=== PATIENT | female | born 1935 | race Caucasian/White ===

== ENCOUNTER 2017-12-10 10:50 | Inpatient (IN) | payer OTHER, MEDICARE ==
--- NOTE | 2017-12-10 11:09 | EDPHY ---
H & P Time Seen by Provider: 12/10/17 11:03 HPI/ROS: CHIEF COMPLAINT: Left-sided weakness HISTORY OF PRESENT ILLNESS: 82-year-old female with a history of atrial fibrillation presents with left-sided weakness. Yesterday evening at 2100 she stood up from the couch and noticed that her left leg felt funny. She went to sleep and when she awoke at 0500, she had increased weakness of her left leg. Her left arm also felt weak. She went back to sleep and when she awoke at 0700 , her symptoms again worsened and she needed to use a walker to ambulate. She went to [facility]. She had a CT scan of the head that demonstrated chronic microvascular changes, no acute infarct or hemorrhage. Aspirin given. She was sent to this emergency department for further evaluation and admission. REVIEW OF SYSTEMS: complete 10 point ROS negative except at noted in the HPI - Medical/Surgical History PMH: Atrial fibrillation Hypothyroidism - Social History Smoking Status: Never smoked Alcohol Use: None - Physical Exam Exam: General Appearance: Alert, pleasant Eyes: Pupils equal and round, no conjunctival pallor or injection ENT, Mouth: Mucous membranes moist Neck: Normal inspection Respiratory: Lungs are clear to auscultation Cardiovascular: Regular rate and rhythm Gastrointestinal: Abdomen is soft and nontender Neurological: A&O, cranial nerves 2-12 intact, left lower extremity hip flexion 5-/5, left shoulder strength 5-/5, freelance operator strength equal Skin: Warm and dry Extremities: Nontender, no pedal edema Psychiatric: Mood and affect normal Constitutional: Initial Vital Signs Temperature (C) 36.6 C 12/10/17 10:50 Heart Rate 75 12/10/17 10:50 Respiratory Rate 16 12/10/17 10:50 Blood Pressure 153/67 H 12/10/17 10:50 O2 Sat (%) 95 12/10/17 10:50 O2 Delivery Mode Room Air Allergies/Adverse Reactions: ciprofloxacin Allergy (Verified 12/10/17 12:00) Iodinated Contrast- Oral and IV Dye Allergy (Verified 12/10/17 11:17) Sulfa (Sulfonamide Antibiotics) Allergy (Verified 12/10/17 12:00) Home Medications: Medication Instructions Recorded Aspirin [Aspirin 81mg (*)] 81 mg PO DAILY 12/10/17 Atenolol [Tenormin 25 mg (*)] 12.5 mg PO DAILY 12/10/17 Levothyroxine [Synthroid 100 mcg 100 mcg PO DAILY06 12/10/17 (*)] Magnesium Laxative 500mg 500 mg PO HS 12/10/17 Medical Decision Making - Diagnostics EKG Interpretation: EKG interpreted by me reveals normal sinus rhythm, rate 75, nonspecific T-wave changes. Interpretation: Abnormal EKG. ED Course/Re-evaluation: This patient presents with a CVA. Onset of symptoms was at 2100 yesterday, 14 hr ago. She already received an aspirin. Medical records reviewed from [facility]. Creatinine in this morning 0.7. CT angiogram of the brain and neck ordered. Patient had allergic reaction to prior IV contrast. The allergic reaction consisted of a few welts on the inside of her right thigh. Risks and benefits were discussed with the patient. She agrees to proceed with CTA. Benadryl 25 mg IV and Solu-Medrol 125 mg IV given prior to CT scan. Pt tolerated CTA without allergic rxn. CTA brain/neck: no thrombus, bilateral ICA plaque, read by radiologist. Results discussed with the patient. Neurologic it exam remained unchanged on serial exams. The hospitalist service was consulted for admission. Differential Diagnosis: Altered mental status including but not limited to hypoglycemia, intracranial hemorrhage, infectious process, electrolyte abnormality, head injury, CVA, and intoxicants. - Data Points Laboratory Results: Laboratory Results 12/10/17 11:11 12/10/17 11:11 Medications Given: Aspirin (Aspirin) 81 mg PO DAILY MICHAELA Stop: 06/09/18 08:59 Last Admin: 12/11/17 09:16 Dose: 81 mg Atenolol (Tenormin) 12.5 mg PO DAILY MICHAELA Stop: 06/08/18 13:29 Last Admin: 12/11/17 09:16 Dose: 12.5 mg Levothyroxine Sodium (Synthroid) 100 mcg PO DAILY06 MICHAELA Stop: 06/09/18 05:59 Last Admin: 12/11/17 05:29 Dose: 100 mcg Rosuvastatin Calcium (Crestor) 10 mg PO DAILY MICHAELA Stop: 06/09/18 08:59 Last Admin: 12/11/17 09:16 Dose: 10 mg Warfarin Sodium (Coumadin) 2.5 mg PO DAILY16 MICHAELA Stop: 06/09/18 15:59 Last Admin: 12/11/17 17:47 Dose: 2.5 mg Discontinued Medications Diphenhydramine HCl (Benadryl Injection) 25 mg IVP EDNOW ONE Stop: 12/10/17 11:32 Last Admin: 12/10/17 11:34 Dose: 25 mg Methylprednisolone Sodium Succinate (Solu-Medrol) 125 mg IVP EDNOW ONE Stop: 12/10/17 11:32 Last Admin: 12/10/17 11:32 Dose: 125 mg Departure - Departure Disposition: [facility] Clinical Impression: Acute ischemic stroke Condition: Fair
[2017-12-10] MEDS ORDERED: IOPAMIDOL (ISOVUE 370) 100 ML BTL IV ONE (11:15)
[2017-12-10 11:22] LABS: PLATELET COUNT 258 10^3/uL (150-400)
--- NOTE | 2017-12-10 11:22 | CPEKG ---
Heart Rate: 75 RR Interval: 800 P-R Interval: 172 QRSD Interval: 76 QT Interval: 412 QTC Interval: 461 P Lytle: 48 QRS Lytle: 22 T Wave Lytle: 67 EKG Severity - ABNORMAL ECG - EKG Impression: SINUS RHYTHM EKG Impression: NONSPECIFIC T ABNORMALITIES, ANTERIOR LEADS Electronically Signed By: Beatriz Olsen 10-Dec-2017 15:02:08
[2017-12-10] MEDS ORDERED: methylPREDNISolone SOD SUCC 125 MG/2 ML VIAL ONE (11:27)
[2017-12-10] MEDS ORDERED: methylPREDNISolone SOD SUCC 125 MG/2 ML VIAL IVP ONE (11:31)
[2017-12-10] MEDS ORDERED: ACETAMINOPHEN 325 MG TAB PO PRN (11:40)
[2017-12-10] MEDS ORDERED: ONDANSETRON 4 MG/2 ML VIAL IVP PRN (11:40)
[2017-12-10] MEDS ORDERED: ONDANSETRON DISINTEGRATING 4 MG TAB PO PRN (11:40)
[2017-12-10] MEDS ORDERED: LABETALOL HCL 5 MG/ML 20 ML MDV IVP PRN (12:21)
--- NOTE | 2017-12-10 13:38 | GHP ---
[f rep st] HISTORY AND PHYSICAL DATE OF ADMISSION: 12/10/2017 CHIEF COMPLAINT: Left arm and leg weakness. HISTORY OF PRESENT ILLNESS: A pleasant 82-year-old female with a history of paroxysmal atrial fibrillation and hypothyroidism, who was transferred from [place] with a concern for stroke. She went to bed last night feeling like something was off, but had normal strength and function. She woke up this morning at 5:00 a.m. to go to the bathroom and noted her left leg to be weak. She had to hold onto the railing to get to the restroom. She took a Tylenol PM and went back to bed. Awoke about 7:00 a.m. and noted her left arm to be weak. Denied any slurred speech, blurred vision, or falls. She was seen in [place] and had a CT head that was negative for acute stroke. EKG showed T-wave inversions in the anterior leads. Per review of the outside records, the patient noted that the symptoms likely began last night at 2100 hours when she stood up from the couch and her left leg felt funny. REVIEW OF SYSTEMS: I completed a 10-point review of systems. Negative except as noted in the HPI. PAST MEDICAL HISTORY: 1. Paroxysmal atrial fibrillation, on a baby aspirin. 2. Hypothyroidism. 3. Osteoporosis. 4. Right hip fracture. 5. Kidney stones. 6. Bronchiectasis with Pseudomonas. 7. Hyperlipidemia. PAST SURGICAL HISTORY: 1. Right hip arthroplasty in 2013. 2. Bilateral cataract surgery. 3. Rectocele. 4. Cystocele. SOCIAL HISTORY: Originally from [place], but moved to [place] in 2002. She lives alone in an apartment. She uses a walker and a cane. Smoked half a pack a day for 5-10 years. FAMILY HISTORY: Maternal grandmother had an MO. Mother had dementia. Dad of a "heat stroke." ALLERGIES: Ciprofloxacin, contrast, sulfa. HOME MEDICATIONS: Milk of magnesia, levothyroxine, atenolol, and baby aspirin. PHYSICAL EXAMINATION: VITAL SIGNS: Temperature 36.6, blood pressure 153/67, heart rate 70s, respirations 16, 95% on room air. GENERAL: Well-appearing female sitting in bed smiling. No acute distress. HEENT: PERRLA. EOMI. Oropharynx clear. CV: Regular rate and rhythm. No murmurs, gallops, or rubs. LUNGS: rhonchorous, with cough. ABDOMEN: Soft, nontender, nondistended. Positive bowel sounds. . No Boyd. MUSCULOSKELETAL: Weakness noted on the left upper extremity. SKIN: Warm and dry. NEUROLOGIC: 2 through 12 intact. Abnormal dcioeo-lu-[id number] test. Abnormal rapid hand. Positive dysdiadochokinesis. Positive pronator drift. Normal sensation to touch throughout. LABORATORY DATA: WBC 7, hemoglobin 12, hematocrit 36, platelets 258. Sodium 142, potassium 4.2, chloride 106, carbon dioxide 26, anion gap 10, creatinine 0.7, glucose 60. Troponin 0.012. I personally reviewed EKG personally reviewed by me: Normal sinus rhythm. T-wave inversions in anterior leads. This is similar to the EKG done this morning at [place]. I personally reviewed labs on October 30, 2017. Cholesterol 211, triglycerides 152 , LDL 117. ASSESSMENT AND PLAN: 1. Left arm and leg weakness: concern for CVA. Had a negative CTH at [place]. Undergoing CTA of head and neck right now. Order MRI, echo. Embolic source possible with a fib. Telemetry Per review of labs in October 2017, she has elevated cholesterol and LDL of 117, so start statin. Neurology to evaluate and discuss ASA vs. Plavix and AC. PT, OT, and Speech to evaluate. 2. Hypothyroidism: LT4 3. Paroxysmal atrial fibrillation, currently in a normal sinus rhythm. Resume atenolol. 4. Diet: N.p.o. until speech eval. 5. Deep venous thrombosis prophylaxis: SCDs. 6. Disposition: Warrants observation admission given the concern for acute stroke, warranting frequent neuro checks, telemetry, and a neuro consultation. /[id number]/MODL MTDD
--- NOTE | 2017-12-10 14:27 | ECHO ---
[email or web address] [address] Main: [phone] Fax: Transthoracic Echocardiogram Name: DEDE CHANEY MR#: [id number] Study Date: 12/10/2017 Study Time: 01:20 PM Date of : 1935 Age: 82 year(s) Height: 177.8 cm (70 in.) Weight: 69.85 kg (154 lb.) BSA: 1.87 m2 Gender: Female Examination: Echo with Agitated Saline Indication: Cerebrovascular: prior CVA, Left Sided weakness Image Quality: Contrast: Requested by: Venita Terrazas BP: 150 mmHg/81 mmHg Heart Rate: Rhythm: Indication: Cerebrovascular: prior CVA, Left Sided weakness Procedure Staff Direct Marketing Specialist: Vasyl Hartmann RDCS Reading Physician: Nicolas Guerrero MD Requesting Provider: Conclusions: Normal size left ventricle. Normal global systolic LV function. EF is 79 %. No regional wall motion abnormality. Normal RV function. The left atrium is normal in size. An agitated saline study was performed and was negative for intracardiac shunting. The right atrium is borderline dilated. Trivial to mild tricuspid valve regurgitation. The pulmonary artery pressure is mildly increased. RVSP 39 mmHg. No pericardial effusion. Measurements: Chambers Valvular Assessment AV/MV Valvular Assessment TV/PV Normal Normal Normal Name Value Range Name Value Range Name Value Range Ao Tracee (MM): 2.9 cm (2.2 cm-3.7 AV Vmax: 1.25 m/s (1 m/s-1.7 TR Vmax: 2.93 mm/s ( - ) cm) m/s) TR PGmax: 34 mmHg ( - ) IVSd (2D): 0.8 cm (0.6 cm-1.1 AV maxP mmHg ( - ) syst. PAP: 39 mmHg ( - ) cm) LVOT Vmax: 0.78 m/s (0.7 m/s-1.1 PV Vmax: 0.88 m/s (0.6 m/s-0.9 LVDd (2D): 4.4 cm (3.9 cm-5.3 m/s) m/s) cm) MV E Vmax: 1.06 m/s ( - ) PV PGmax: 3 mmHg ( - ) LVDs (2D): 2.3 cm (2.1 cm-4 MV A Vmax: 0.98 m/s ( - ) cm) MV E/A: 1.08 ( - ) LVPWd (2D): 0.9 cm ( - ) LVEF (2D): 79 (>=54 %) Continued Measurements: Patient: DEDE CHANEY Study Date: 12/10/2017 Page 1 of 2 01:20 PM Chambers Valvular Assessment AV/MV Valvular Assessment TV/PV Name Value Name Value Name Value LADs Lon.2 cm MV E' Septal: 0.06 m/s CVP (est.): 5 mmHg LA Area: 14.0 cm2 MV E/E' Septal: 18.40 LA Volume: 28 ml MV E/E' Lateral: 14.70 LA Volume Index: 15.0 ml/m2 Findings: Left Ventricle: Normal size left ventricle. No LV hypertrophy. Normal global systolic LV function. EF is 79 %. No regional wall motion abnormality. Grade 1 diastolic dysfunction (abnormal relaxation). Right Ventricle: Upper normal size right ventricle. Normal RV function. Left Atrium: The left atrium is normal in size. An agitated saline study was performed and was negative for intracardiac shunting. Right Atrium: The right atrium is borderline dilated. Mitral Valve: Mild mitral valve leaflet calcification is present. Moderate mitral annular calcification. Trivial mitral valve regurgitation. Aortic Valve: Mild aortic cusp calcification is noted. No aortic valve stenosis is present. There is no aortic valve regurgitation. Tricuspid Valve: The tricuspid valve appears normal. Trivial to mild tricuspid valve regurgitation. The pulmonary artery pressure is mildly increased. RVSP 39 mmHg. Pulmonic Valve: The pulmonic valve is normal in appearance and function. Aorta: The aorta is normal. Pericardium: No pericardial effusion. (No Signature Object) Patient: DEDE CHANEY Study Date: 12/10/2017 Page 2 of 2 01:20 PM [id number]
[2017-12-10] MEDS ORDERED: GADOBUTROL 10 ML VIAL IVP ONE (14:39)
[2017-12-10] MEDS: ATENOLOL 25 MG TAB PO SCH (15:33)
[2017-12-11] MEDS: LEVOTHYROXINE 100 MCG TAB PO SCH (05:29)
[2017-12-11] MEDS: ASPIRIN 81 MG CHEWABLE TAB PO SCH (09:16)
[2017-12-11] MEDS: ATENOLOL 25 MG TAB PO SCH (09:16)
[2017-12-11] MEDS: ROSUVASTATIN CALCIUM 10 MG TAB PO SCH (09:16)
--- NOTE | 2017-12-11 09:56 | NEUROPROG ---
Assessment: [id number] - Neurology Consult: - CC: Dr. Farhad Damon consulted neurology for left arm and leg weakness. Results placed in EMR for his review. - HPI: Pt reported on 12/09/17 she noted left leg weakness when she stood up from a chair at 2100. She went to bed then awoke on 12/10/17 with left leg weakness. She went to sleep then re-awoke at 7 am and noted her left arm was weak. She was transferred from [facility] with concern for stroke after head CT showed no acute changes. CTA head/neck showed no acute changes requiring intervention, TTE showed no cardiac thrombus, but brain MRI showed a right sided stroke around the internal capsule concerning for an embolic source (pt has known atrial fibrillation). I initially saw the patient on 12/11/17. Her neurologic exam on 12/11/17 showed left arm/leg weakness and coordination issues. I recommended on discharge she have her daily aspirin changed to oral anticoagulation to prevent further strokes. - PMHx: afib, hypothyroidism, osteoporosis, R hip fx, renal stones, bronchiectasis w/pseduomonas, HLD PSHx: R hip, B/L cataract, retocele, cystocele - Home Medications: levothyroxine, milk of magnesia, atenolol, asa 81 mg qd - SHx: prior tobacco user FHx: NH, dementia, heat stroke - ROS: Pt denied acute fever, total vision loss, active severe chest pain, respiratory failure, total body severe rash, total bowel/bladder incontinence, psychosis, active seizures, or active bleeding - O: VS reviewed General: Alert Eyes: Fundoscopic exam not able to visualize optic disks CV: Heart RRR, no murmur, no carotid bruit Lungs: Clear to auscultation bilaterally, no rhonchi or rales Neuro: - Mental: . Oriented x person/place/date . concentration appears normal . speech fluency/comprehension normal . memory appears normal . fund of knowledge appear intact - Cranial Nerves: . II: PERRL, VFFTC . III/IV/: EOMI, no nystagmus, normal smooth pursuits, no Ptosis . V: facial sensation intact to LT . VII: face symmetric to eye closure and smile . VIII: hearing intact to conversation . IX/X: uvula raises symmetrically . XI: SCM 12/12 B/L strength . XII: tongue protrudes midline w/nl strength - Motor: . Tone: normal tone in all 4 extremity . Strength: right arm/leg normal strength, left arm/leg with 4+/5 weakness - Reflexes: B/L bic/BR/patella 2/4 - Sensory: all 4 extremity intact to light touch - Coord: left arm/leg discoordinated - Gait: deferred - NIH SS 4 (mild left arm and leg weakness, some coordination issues in left arm and leg) - Labs: October 2017- LDL 117 (started on statin at that time) 12/10/17- CBC Hct 36.6L, Chem wnl, Trop neg - Rads: 12/10/17- Head/Neck CTA: unremarkable 12/10/17- TTE: EF 79%, no cardiac thrombus reported 12/10/17- Brain MRI w/o con: R subcortical small stroke by internal capsule, mild CMVD - Assessment: 1. 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 TTE and CTA head/neck unremarkable. Pt on statin for LDL of 117. - 2. Paroxysmal afib 3. HTN - Plan: - Begin oral anticoagulation at hospital discharge, stop aspirin when patient therapeutic on oral anticoagulation (stroke felt to be embolic from paroxysmal afib, failed aspirin) - LDL goal < 70 (October 2017 LDL was 117 so began statin at that time), continue statin - Work with outpatient PCM to ensure blood pressure < 140/90, H1AC < 7.0, and LDL < 70 - PT/OT/Speech assessment to determine any rehab needs - F/U in neurology clinic 1-4 weeks after discharge Objective: Vital Signs Temp Pulse Resp BP Pulse Ox 36.6 C 75 17 142/70 H 92 12/11/17 08:00 12/11/17 09:16 12/11/17 08:00 12/11/17 09:16 12/11/17 08:00 12/10/17 12/11/17 12/12/17 05:59 05:59 05:59 Intake Total 700 480 Output Total 500 Balance 200 480 Allergies/Adverse Reactions: ciprofloxacin Allergy (Verified 12/10/17 12:00) Iodinated Contrast- Oral and IV Dye Allergy (Verified 12/10/17 11:17) Sulfa (Sulfonamide Antibiotics) Allergy (Verified 12/10/17 12:00)
--- NOTE | 2017-12-11 14:44 | ASMTCMCOM ---
CM Note CM Note Notes: Pt in for stroke, dghtr Malina at bedside. OT rec SNF, PT rec inpat rehab, [employer] rec home. Pt and dghtr request SNF referrals to [facility] and [facility], referrals sent in [employer]. Pt was in [facility] four years ago. Penelope with [facility] is reviewing referral and reports she may not know bed availability unitl Thursday. Referral to [facility] pending, voicemail left for admissions at 14:00. Preferred SNF location is [facility] since it is close to where dghtr lives in [place], [place]. [facility] inpat rehab assessing pt, can continue assessment Thursday but unknown if there is any bed availability and if [place] is still too far for dghtr. CM to follow. Date Signed: 12/11/2017 02:44 PM Electronically Signed By:JERRI Good
--- NOTE | 2017-12-11 14:44 | HOSPPROG ---
Hospitalist Progress Note Assessment/Plan: 1. 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 Herring, we will start Coumadin tonight. Cont Aspirin 81 mg daily until INR is therapeutic. No need to start Heparin bridge -will check A1C - F/U in neurology clinic 1-4 weeks after discharge 2. HLD -cont Statin 3. pAfib: cont Atenolol 4. Left sided weakness -cont pt/ot -still symptomatic, almost fell with therapy today. 5. HTN, cont with current meds. Goal is < 140/90. Dispo: change to inpatient. Due to persistent weakness, she may need rehab vs SNF. CM to follow. Subjective: still with left sided weakness. almost fell today while working with PT. Gait is unstable Objective: Vital Signs Temp Pulse Resp BP Pulse Ox 36.3 C 74 16 137/74 H 93 12/11/17 11:12 12/11/17 11:12 12/11/17 11:12 12/11/17 11:12 12/11/17 11:12 12/10/17 12/11/17 12/12/17 05:59 05:59 05:59 Intake Total 700 480 Output Total 500 Balance 200 480 - Physical Exam Constitutional: no apparent distress Eyes: PERRL Ears, Nose, Mouth, Throat: moist mucous membranes, hearing normal Cardiovascular: regular rate and rhythym, No edema Respiratory: no respiratory distress, no rales or rhonchi, clear to auscultation Gastrointestinal: normoactive bowel sounds Skin: warm Musculoskeletal: generalized weakness Neurologic: AAOx3 Psychiatric: interacting appropriately, not anxious, not encephalopathic Lymph, Heme, Immunologic: No petechiae ICD10 Worksheet Patient Problems: Problems Problem Status Onset CVA (cerebral vascular accident) Acute - ICD10 Problem Qualifiers (1) CVA (cerebral vascular accident)
--- NOTE | 2017-12-11 16:54 | PDMN ---
Medical Necessity Medical necessity: C/M review: est. > 2 MN LOS for eval and TX of acute right internal capsule stroke on 12/10/2017 causing left am, / leg weakness, patient almost fell with therapy 12/11/2017, concern for embolic stroke requiring Neurology consult, Rehab eval consult, ongoing oral Coumadin daily - start 2017, continue aspirin daily until INR is therapeutic, cardiac monitoring, pulse oximetry, acute inpt PT/OT/ST, comorbid hyperlipidemia, paroxysmal atrial fibrillation and hypertension, per 12/11/2017 Hospitalist progress note.
--- NOTE | 2017-12-11 17:04 | ASMTCMCOM ---
CM Note CM Note Notes: Penelope at [facility] [phone] reports they can clinically accept pt and will not know if they have a bed until Thursday. Chayo at [facility] [phone] still reviewing, reports pt would not be able to attend follow up appointments in [facility]. Date Signed: 12/11/2017 05:03 PM Electronically Signed By:JERRI Good
[2017-12-11] MEDS: WARFARIN SODIUM 2.5 MG TAB PO SCH (17:47)
[2017-12-11] MEDS: MELATONIN 3 MG TAB PO PRN (20:52)
[2017-12-12 04:57] LABS: INR 1.05 (0.83-1.16); PROTIME(PATIENT) 13.9 SEC (12.0-15.0)
[2017-12-12] MEDS: LEVOTHYROXINE 100 MCG TAB PO SCH (05:29)
[2017-12-12] MEDS: ATENOLOL 25 MG TAB PO SCH (08:31)
[2017-12-12] MEDS: ROSUVASTATIN CALCIUM 10 MG TAB PO SCH (08:33)
[2017-12-12] MEDS: ASPIRIN 81 MG CHEWABLE TAB PO SCH (08:33)
--- NOTE | 2017-12-12 10:06 | HOSPPROG ---
Hospitalist Progress Note Assessment/Plan: 1. 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 Herring, we will start Coumadin tonight. Cont Aspirin 81 mg daily until INR is therapeutic. No need to start Heparin bridge -will check A1C - F/U in neurology clinic 1-4 weeks after discharge 2. HLD -cont Statin 3. pAfib: cont Atenolol * interestingly the armour thyroid she was on for 50 years was changed to synthroid 3 weeks ago because her insurance wouldn't cover armour. May have increased disposition to afib? * will check tsh 4. Left sided weakness -cont pt/ot -still symptomatic, almost fell with therapy today. 5. HTN, cont with current meds. Goal is < 140/90. Dispo: change to inpatient. Due to persistent weakness, she will go to SNF on Thursday. Subjective: no new events Objective: Vital Signs Temp Pulse Resp BP Pulse Ox 36.3 C 73 24 H 134/79 H 92 12/12/17 08:00 12/12/17 08:00 12/12/17 08:00 12/12/17 08:00 12/12/17 08:00 12/11/17 12/12/17 12/13/17 05:59 05:59 05:59 Intake Total 700 1280 Output Total 500 Balance 200 1280 PT 13.9 SEC (12.0-15.0) 12/12/17 04:16 INR 1.05 (0.83-1.16) 12/12/17 04:16 tele pers rev/int - Physical Exam Constitutional: no apparent distress, appears nourished, not in pain Eyes: anicteric sclera, EOMI Ears, Nose, Mouth, Throat: moist mucous membranes, hearing normal Cardiovascular: regular rate and rhythym, no murmur, rub, or gallop Respiratory: no respiratory distress, no rales or rhonchi, clear to auscultation Skin: warm Neurologic: AAOx3 Psychiatric: interacting appropriately, not anxious, not encephalopathic, thought process linear ICD10 Worksheet Patient Problems: Problems Problem Status Onset Acute ischemic stroke Acute CVA (cerebral vascular accident) Acute
--- NOTE | 2017-12-12 13:19 | NEUROPROG ---
Assessment: [id number] - Neurology Consult: - CC: F/U for stroke - Narrative Summary: Pt reported on 12/09/17 she noted left leg weakness when she stood up from a chair at 2100. She went to bed then awoke on 12/10/17 with left leg weakness. She went to sleep then re-awoke at 7 am and noted her left arm was weak. [place] [facility] [place] after head CT showed no acute changes. CTA head/neck showed no acute changes requiring intervention, TTE showed no cardiac thrombus, but brain MRI showed a right sided stroke around the internal capsule concerning for an embolic source (pt has known atrial fibrillation). I initially saw the patient on 12/11/17. Her neurologic exam on 12/11/17 showed left arm/leg weakness and coordination issues. I recommended on discharge she have her daily aspirin changed to oral anticoagulation to prevent further strokes. - HPI: F/U 12/12/17. Pt did not months of some memory disturbance but no acute changes. No other new complaints. Plan is discharge to SNF on Thursday and beginning oral anticoagulation soon. - PMHx: afib, hypothyroidism, osteoporosis, R hip fx, renal stones, bronchiectasis w/pseduomonas, HLD PSHx: R hip, B/L cataract, retocele, cystocele - Home Medications: levothyroxine, milk of magnesia, atenolol, asa 81 mg qd - SHx: prior tobacco user FHx: NC, dementia, heat stroke - ROS: Pt denied acute fever, total vision loss, active severe chest pain, respiratory failure, total body severe rash, total bowel/bladder incontinence, psychosis, active seizures, or active bleeding - Labs: October 2017- LDL 117 (started on statin at that time) 12/10/17- CBC Hct 36.6L, Chem wnl, Trop neg - Rads: 12/10/17- Head/Neck CTA: unremarkable 12/10/17- TTE: EF 79%, no cardiac thrombus reported 12/10/17- Brain MRI w/o con: R subcortical small stroke by internal capsule, mild CMVD - Assessment: 1. 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 TTE and CTA head/neck unremarkable. Pt on statin for LDL of 117. - 2. Paroxysmal afib 3. HTN - 4. Months of Memory Disturbance: Concern for possible dementia, will evaluate in outpatient setting at f/u visit - Plan: - Begin oral anticoagulation at hospital discharge, stop aspirin when patient therapeutic on oral anticoagulation (stroke felt to be embolic from paroxysmal afib, failed aspirin) - LDL goal < 70 (October 2017 LDL was 117 so began statin at that time), continue statin - Work with outpatient PCM to ensure blood pressure < 140/90, H1AC < 7.0, and LDL < 70 - PT/OT/Speech assessment to determine any rehab needs - F/U in neurology clinic 1-4 weeks after discharge, we can evaluate her memory disturbance at that time - No further neurologic w/u needed, neurology will sign off - 35 min spent with patient, majority of time spent counseling on prognosis and treatment options to prevent recurrent stroke. Objective: Vital Signs Temp Pulse Resp BP Pulse Ox 36.3 C 65 19 144/81 H 96 12/12/17 11:42 12/12/17 11:42 12/12/17 11:42 12/12/17 11:42 12/12/17 11:42 12/11/17 12/12/17 12/13/17 05:59 05:59 05:59 Intake Total 700 1280 350 Output Total 500 250 Balance 200 1280 100 PT 13.9 SEC (12.0-15.0) 12/12/17 04:16 INR 1.05 (0.83-1.16) 12/12/17 04:16 Allergies/Adverse Reactions: ciprofloxacin Allergy (Verified 12/10/17 12:00) Iodinated Contrast- Oral and IV Dye Allergy (Verified 12/10/17 11:17) Sulfa (Sulfonamide Antibiotics) Allergy (Verified 12/10/17 12:00)
--- NOTE | 2017-12-12 14:40 | ASMTCMCOM ---
CM Note CM Note Notes: Spoke with Chayo, at [facility] in [place]; willing to accept pt; bed available Thursday, 12/14. Chayo states pt will need to have had a bowel movement 48 hrs prior to admission. Updated pt, pt's daughter, Shannan & RN. Chayo states pt will need to be at [facility] by early afternoon Thursday. Updated pt, Shannan & RN. Shannan agreeable to transporting pt. Chayo also reports pt's followup appointments will need to be scheduled in [place], not [place]. Asked Chayo if pt could attend followup appointments in [place] if her daughter drove her here. Chayo to discuss with Supervisior on Thursday & let CM know. Pt is currently being followed by Neurology & will need to followup, at [facility]rology Clinic in [place], 1-4 weeks following dc from hospital. Updated RN, pt & Shannan; Shannan willing to drive pt to followup appointment in [place]. If [facility] won't let pt go to followup appointment in [place], appointment will need to be scheduled once pt is discharged from [facility]. Pt's daughter planning to visit [facility] in [place] this afternoon to make sure she wants pt to go there at time of dc. CM will follow. Dc plan-SNF Date Signed: 12/12/2017 02:39 PM Electronically Signed By:Tina Brar RN
[2017-12-12] MEDS: WARFARIN SODIUM 2.5 MG TAB PO SCH (15:40)
--- NOTE | 2017-12-12 15:45 | ASMTCMCOM ---
CM Note CM Note Notes: Received phonecall from pt's daughter, Shannan; Shannan would now prefer pt not dc to [facility] in [place]. Shannan states she visited facility today & does not want her mother to go there; prefers [facility] in [place]. LVM with [facility] in [place] to check bed availabilty; awaiting callback. CM will continue to follow. Dc plan-SNF Date Signed: 12/12/2017 03:44 PM Electronically Signed By:Tina Brar RN
[2017-12-12] MEDS: MELATONIN 3 MG TAB PO PRN (20:05)
[2017-12-13] MEDS: LEVOTHYROXINE 100 MCG TAB PO SCH (05:07)
[2017-12-13 06:02] LABS: INR 1.03 (0.83-1.16); PROTIME(PATIENT) 13.7 SEC (12.0-15.0)
[2017-12-13] MEDS: ASPIRIN 81 MG CHEWABLE TAB PO SCH (08:13)
[2017-12-13] MEDS: ATENOLOL 25 MG TAB PO SCH (08:14)
[2017-12-13] MEDS: ROSUVASTATIN CALCIUM 10 MG TAB PO SCH (08:14)
--- NOTE | 2017-12-13 10:35 | HOSPPROG ---
Hospitalist Progress Note Assessment/Plan: 1. 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 Herring, we will start Coumadin tonight. Cont Aspirin 81 mg daily until INR is therapeutic. No need to start Heparin bridge -will check A1C - F/U in neurology clinic 1-4 weeks after discharge 2. HLD -cont Statin 3. pAfib: cont Atenolol * interestingly the armour thyroid she was on for 50 years was changed to synthroid 3 weeks ago because her insurance wouldn't cover armour. May have increased disposition to afib? * TSH is low normal after 3 week of therapy * Will need another TSH in 3 weeks 4. Left sided weakness -cont pt/ot -still symptomatic, almost fell with therapy today. 5. HTN, cont with current meds. Goal is < 140/90. Dispo: change to inpatient. Due to persistent weakness, she will go to SNF on Thursday. Subjective: no new complaints Objective: Vital Signs Temp Pulse Resp BP Pulse Ox 36.4 C 72 18 136/81 H 94 12/13/17 07:28 12/13/17 07:28 12/13/17 07:28 12/13/17 07:28 12/13/17 07:28 12/12/17 12/13/17 12/14/17 05:59 05:59 05:59 Intake Total 1280 1200 550 Output Total 250 Balance 1280 950 550 PT 13.7 SEC (12.0-15.0) 12/13/17 05:37 INR 1.03 (0.83-1.16) 12/13/17 05:37 - Physical Exam Constitutional: no apparent distress, appears nourished, not in pain Eyes: anicteric sclera, EOMI Ears, Nose, Mouth, Throat: moist mucous membranes, hearing normal Cardiovascular: regular rate and rhythym, no murmur, rub, or gallop Respiratory: no respiratory distress, no rales or rhonchi, clear to auscultation Skin: warm Neurologic: AAOx3 Psychiatric: interacting appropriately, not anxious, not encephalopathic, thought process linear ICD10 Worksheet Patient Problems: Problems Problem Status Onset Acute ischemic stroke Acute CVA (cerebral vascular accident) Acute
--- NOTE | 2017-12-13 12:15 | ASMTCMCOM ---
CM Note CM Note Notes: Spoke with Zakia, at [facility] in [place]; still unsure whether bed will available for pt tomorrow. Updated Zakia that pt no longer has a backup plan if [facility] doesn't have a bed for pt; explained pt no longer wants to go to [facility] in [place] & her daughter will need to spend today touring other SNFs because anticipated dc is tomorrow. Zakia contacted Director of [facility] in [place]; informed bed will be available for pt tomorrow. Updated pt, her daughter, MD & RN. Updates faxed; confirmed received CM will continue to follow. Dc plan-[facility] in [place] Date Signed: 12/13/2017 12:15 PM Electronically Signed By:Tina Brar RN
[2017-12-13] MEDS ORDERED: WARFARIN SODIUM 5 MG TAB PO ONE (16:00)
[2017-12-13] MEDS: MELATONIN 3 MG TAB PO PRN (21:01)
[2017-12-14] MEDS: LEVOTHYROXINE 100 MCG TAB PO SCH (05:24)
[2017-12-14 05:28] LABS: INR 1.13 (0.83-1.16); PROTIME(PATIENT) 14.7 SEC (12.0-15.0)
--- NOTE | 2017-12-14 10:19 | CPEKG ---
Heart Rate: 99 RR Interval: 606 P-R Interval: 160 QRSD Interval: 84 QT Interval: 332 QTC Interval: 426 P [place]: 76 QRS [place]: 55 T Wave [place]: 83 EKG Severity - BORDERLINE ECG - EKG Impression: SINUS RHYTHM EKG Impression: BORDERLINE T ABNORMALITIES, ANT-LAT LEADS Electronically Signed By: Adilson Odom 14-Dec-2017 12:40:30
[2017-12-14] MEDS: ASPIRIN 81 MG CHEWABLE TAB PO SCH (10:48)
[2017-12-14] MEDS: ATENOLOL 25 MG TAB PO SCH (10:49)
[2017-12-14] MEDS: ROSUVASTATIN CALCIUM 10 MG TAB PO SCH (10:49)
--- NOTE | 2017-12-14 10:51 | HOSPPROG ---
Hospitalist Progress Note Assessment/Plan: DIAGNOSES: * SINUS TACHYCARDIA, uncertain etiology, new diagnosis this morning * Associated with no elevation of white blood cell count, slight decrease in CO2 on chemistry, and elevated D-dimer * internal capsule stroke, acute right-sided with left-sided weakness * Perhaps some very slight improvement in her hand weakness but otherwise unchanged since admission with mild disabilities * Significant likelihood that this was caused by AFib verses the more common mechanism of stroke * This episode occurred while taking daily low-dose aspirin at home but not on anticoagulant * chronic atrial fibrillation, paroxysmal, currently sinus rhythm during this hospital stay * Chads Vasc 2 score at least 4 so with significant stroke risk * hypertension, chronic, currently well controlled on low-dose medication * hyperlipidemia, mild but LDL at her primary care doctor's office was above our goal of 70 * Started at this time on statin and tolerating it well so far The cause of her new sinus tachycardia is uncertain. She is on Coumadin without full-dose bridging heparin compound which could leave her with some mild hypercoagulability an increase risk of PE. She has no pain in the chest, shortness of breath or DVT symptoms and her legs did not show signs of DVT, nonetheless will do CT scan to rule out PE at this time. She does have a contrast allergy so will have to give her the steroid and Benadryl pre dose again. There is no fever at this time I do not think she has an infection. She does have known bronchiectasis and I expect there to be some abnormality related to that on her chest CT PLANS: -will check a D-dimer and if not normal will pursue CT scan and/or ultrasound look for clots as cause of tachycardia -will check labs to make sure no bleeding or other changes that would explain her tachycardia -continue PT and OT -had a very lengthy discussion today with the patient and daughter at bedside totaling more than 30 min regarding counseling about the various medication choices. The main issue is that she absolutely needs and anticoagulant and they are in agreement with that, though I would recommend a consider Eliquis and after our discussion of the various choices of anticoagulant with the advantages and disadvantages of each they are wanting to change to Eliquis. In addition we went over the statin choices and they are happy with using a statin at this point and they are aware to watch for muscle symptoms that might need assessment. Also they are very concerned about her recent change in thyroid. At this point her TSH is in the normal range but it is only 3 weeks since her change of medications so she still needs to reassess TH in another few weeks and I reviewed that with him. SUBJECTIVE: Today the patient says she feels more tired than usual but no other new symptoms No change overall today from yesterday in her stroke deficits which remain mild and one-sided No chest discomfort, palpitations, shortness of breath, fever symptoms, leg pain or swelling, lightheadedness Eating well and with no aspiration type symptoms OBJECTIVE Vitals reviewed: Has been tachycardic the through the morning which is new today pulse between 95 and 110 mostly in the 100-105 range though around noon it started to slow down and her pulse is now back down into the low 80s upper 70s; otherwise stable BP respirations and temperature [employer], my review: Mild sinus tachycardia this morning has resolved to a sinus rhythm and normal rate Exam: alert oriented No change in voice or speech language functions, the EMR no change in her left- sided motor weakness exam skin warm dry color ok resps not labored lungs clear BSs heart regular abd soft nondistended nontender, bowel sounds present limbs warm, no edema iv site ok 12 lead EKG, 1 ordered by me now, and I compared that tracing with the tracing from her admission EKG: Sinus rhythm on both EKGs with some nonspecific anterior lateral ST abnormality, heart rate 99 on today's EKG is new, nothing overtly ischemic and no conduction abnormalities Laboratory data: I did order a CBC, Chem panel and D-dimer. The D-dimer is mildly elevated her white blood cell count is notably elevated compared to previous up 11. On chemistry there is a slight decrease in CO2 indicating a possible mild metabolic acidosis or respiratory compensation for same. Objective: Vital Signs Temp Pulse Resp BP Pulse Ox 36.7 C 97 20 118/77 92 12/14/17 07:30 12/14/17 10:49 12/14/17 07:30 12/14/17 10:49 12/14/17 07:30 12/13/17 12/14/17 12/15/17 06:59 06:59 06:59 Intake Total 1200 2024 Output Total 250 Balance 950 2024 PT 14.7 SEC (12.0-15.0) 12/14/17 04:52 INR 1.13 (0.83-1.16) 12/14/17 04:52 - Time Spent With Patient Time Spent with Patient: greater than 35 minutes Time Spent with Patient: Greater than 35 minutes spent on this patients care, greater than 50% of time spent counseling, educating, and coordinating care regarding the above mentioned plan. ICD10 Worksheet Patient Problems: Problems Problem Status Onset Acute ischemic stroke Acute CVA (cerebral vascular accident) Acute
[2017-12-14 12:15] LABS: PLATELET COUNT 308 10^3/uL (150-400)
[2017-12-14] MEDS ORDERED: methylPREDNISolone SOD SUCC 125 MG/2 ML VIAL IVP ONE (15:38)
[2017-12-14] MEDS ORDERED: WARFARIN SODIUM 3 MG TAB PO ONE (16:00)
[2017-12-14] MEDS ORDERED: WARFARIN SODIUM 5 MG TAB PO ONE (16:00)
--- NOTE | 2017-12-14 16:43 | ASMTCMCOM ---
CM Note CM Note Notes: Today pt had rapid heart rate which is new, this made pt and dghtr nervous about going to SNF in [place]. Pt dghtr wants pt to be medically treated at [facility] if any new issues come up so today they decided they are agreeable to a [place] location for d/c. Pt appropriate for [facility] inpatient rehab and can d/c when medically stable. CM to follow. Date Signed: 12/14/2017 04:42 PM Electronically Signed By:JERRI Good
[2017-12-14] MEDS ORDERED: IOPAMIDOL (ISOVUE 370) 100 ML BTL IV ONE (18:22)
[2017-12-14] MEDS: MELATONIN 3 MG TAB PO PRN (21:16)
[2017-12-15] MEDS: LEVOTHYROXINE 100 MCG TAB PO SCH (05:56)
[2017-12-15] MEDS: ATENOLOL 25 MG TAB PO SCH (08:13)
[2017-12-15] MEDS: ROSUVASTATIN CALCIUM 10 MG TAB PO SCH (08:14)
[2017-12-15] MEDS: ASPIRIN 81 MG CHEWABLE TAB PO SCH (08:15)
[2017-12-15] MEDS ORDERED: GADOBUTROL 10 ML VIAL IVP ONE (13:10)
--- NOTE | 2017-12-15 19:01 | HOSPPROG ---
Hospitalist Progress Note Assessment/Plan: DIAGNOSES: * SINUS TACHYCARDIA, uncertain etiology, now resolved spontaneously * CT scan with no PE or other findings to explain this, nothing on laboratory data to explain this and it is resolved. The cause is uncertain but I do not have suspicion for a concerning abnormalities this point * internal capsule stroke, acute right-sided with left-sided weakness * Perhaps some very slight improvement in her hand weakness but otherwise unchanged since admission with mild disabilities * Significant likelihood that this was caused by AFib verses the more common mechanism of stroke * This episode occurred while taking daily low-dose aspirin at home but not on anticoagulant * complex cystic structure in the liver noted on CT scan appears as a benign lesion on MRI liver mass protocol * chronic atrial fibrillation, paroxysmal, currently sinus rhythm during this hospital stay * Chads Vasc 2 score at least 4 so with significant stroke risk anticoagulation is clearly indicated * I have had long review of the advantage disadvantages side effects and other issues in terms of choosing different anticoagulants with the patient and her daughter and after carefully reviewing all the options they would like to use Eliquis which I will prescribe at the time of discharge, will hold off for another day due to her recent stroke * hypertension, chronic, currently well controlled on low-dose medication * hyperlipidemia, mild but LDL at her primary care doctor's office was above our goal of 70 * Started at this time on statin and tolerating it well so far PLANS: -at this point she is stable for discharge from the hospital to the inpatient rehabilitation unit, however they are unable to take patient's this late in the day so she will be going there tomorrow morning -continue PT and OT SUBJECTIVE: Feels tired after her MR today. Otherwise she feels fine Actually notes some slight improvement in her stroke deficits in terms of the weakness in limbs today working with therapists. No new neurologic symptoms, no palpitations, no chest symptoms or headache OBJECTIVE Vitals reviewed: Tachycardia has now resolved, with stable blood pressure respirations and temperature is Mushroom Picker, my review: Sinus rhythm Exam: alert oriented No change in voice or speech language functions, the EMR no change in her left- sided motor weakness exam skin warm dry color ok resps not labored lungs clear BSs heart regular abd soft nondistended nontender, bowel sounds present limbs warm, no edema iv site ok CT scan of chest done, I reviewed images: I do not see any pulmonary emboli nor did the radiologist. There are no other acute intrathoracic abnormalities to explain her tachycardia or any other abnormalities that would explain it. However incidentally noted was a new finding of a complex poly cystic lesion in the dome of the liver on the right, with differential diagnosis including malignancy. MRI scan is recommended by Radiology for further assessment. I ordered MRI scan of the abdomen and this was done with a liver mass protocol and I reviewed the images and findings with radiologist: The cystic lesion noted on CT in liver is present but has a benign appearance on this MRI scan and further assessment is not recommended. There is also a simple and benign- appearing cyst in the pancreas. Laboratory data: The follow-up laboratory dated yesterday showed a higher white blood cell count I suspect this is due to her steroid doses for her CT scans. Otherwise no concerning changes Objective: Vital Signs Temp Pulse Resp BP Pulse Ox 36.4 C 82 16 124/85 H 95 12/15/17 15:39 12/15/17 15:39 12/15/17 15:39 12/15/17 15:39 12/15/17 15:39 Laboratory Results 12/14/17 12:00 12/14/17 12:00 12/14/17 12/15/17 12/16/17 06:59 06:59 06:59 Intake Total 2024 500 800 Balance 2024 500 800 PT 14.7 SEC (12.0-15.0) 12/14/17 04:52 INR 1.13 (0.83-1.16) 12/14/17 04:52 - Time Spent With Patient Time Spent with Patient: greater than 35 minutes Time Spent with Patient: Greater than 35 minutes spent on this patients care, greater than 50% of time spent counseling, educating, and coordinating care regarding the above mentioned plan. ICD10 Worksheet Patient Problems: Problems Problem Status Onset Acute ischemic stroke Acute CVA (cerebral vascular accident) Acute
[2017-12-15] MEDS: MELATONIN 3 MG TAB PO PRN (21:40)
[2017-12-16] MEDS: LEVOTHYROXINE 100 MCG TAB PO SCH (05:51)
[2017-12-16] MEDS: ASPIRIN 81 MG CHEWABLE TAB PO SCH (07:46)
[2017-12-16] MEDS: ATENOLOL 25 MG TAB PO SCH (07:46)
[2017-12-16] MEDS: ROSUVASTATIN CALCIUM 10 MG TAB PO SCH (07:47)
--- NOTE | 2017-12-16 08:46 | PDIAF ---
- Diagnosis Diagnosis: Stroke with left-sided weakness, atrial fibrillation Code Status: Do Not Resuscitate - Medication Management Discharge Medications: Medications to Continue on Transfer Aspirin [Aspirin 81mg (*)] 81 mg PO DAILY 12/10/17 [Last Taken 12/10/17] Atenolol [Tenormin 25 mg (*)] 12.5 mg PO DAILY 12/10/17 [Last Taken 12/09/17] Levothyroxine [Synthroid 100 mcg (*)] 100 mcg PO DAILY06 12/10/17 [Last Taken ] Apixaban [Eliquis] 5 mg PO BID #1 tab 12/16/17 [Last Taken Unknown] Melatonin [Melatonin 3 MG (*)] 3 mg PO HS PRN tab 12/16/17 [Last Taken Unknown] Ondansetron Odt [Zofran Odt 4 mg (*)] 4 mg PO Q4HRS PRN tab 12/16/17 [Last Taken Unknown] Rosuvastatin Calcium [Crestor] 10 mg PO DAILY tab 12/16/17 [Last Taken Unknown] Discharge Medications: Refer to the Discharge Home Medication list for PRN reason. - Orders Services needed: Registered Nurse, Certified Hand Paster, Master Materials Planner , Physical Therapy, Occupational Therapy Diet Recommendation: low fat Diet Texture: Regular Texture Diet - Labs/Radiology Other Lab Name, Date and Time: She will need a repeat TSH in approximately 1 month presumably at that time - Follow Up Care Current Providers and Referrals: Patient,NotPresent [Unknown] - As per Instructions
--- NOTE | 2017-12-16 08:52 | PDDCSUM ---
Discharge Summary Discharge Summary: DISCHARGE DIAGNOSES: -acute stroke, ischemic, right internal capsule -left side weakness -chronic atrial fibrillation, paroxysmal, was not on anticoagulant prior to this admission -sinus tachycardia of uncertain etiology, resolved -complex cystic structure of the dome of the right lobe of the liver appears as a benign lesion on imaging studies -chronic hypothyroidism on replacement, recent change in her thyroid replacement medication currently with normal TSH and asymptomatic CONSULTANTS: Dr. James Herring of neurology PROCEDURES: CT scan of brain CT angio head neck MRI brain CT angio of chest with no evidence of PE but question of polycystic lesion and liver MRI liver mass protocol showing benign appearing cystic lesion of the right lobe of the liver as well as a benign-appearing pancreatic cyst HOSPITAL COURSE SUMMARY: This patient who has chronic paroxysmal atrial fibrillation has taken aspirin but no anticoagulant came in with acute left-sided weakness and is found have an ischemic stroke in her right internal capsule. There has been no evidence of bleeding into this lesion. She has had a stable course neurologically we gradual mild improvement in her stroke deficits. She has a mild to moderate disability with these symptoms. She is participating well with therapies. At this time is elected to start her on statin medication as well as anticoagulant due to her recent outpatient lipid studies and her history of atrial fibrillation. She will continue daily aspirin. While here she did develop some sinus tachycardia which lasted for about 12 hr. No etiology was found and there were no other signs of instability. While this was going on we did a CT scan of the chest to look for PE which was negative for PE but had a complex appearing cystic structure in the dome of the liver on the right. This was further studied with a MRI liver mass protocol which showed a benign-appearing polycystic lesion at the dome of the liver, as well as a benign appearing pancreatic cyst. No further investigations or fell indicated At this time she is stable for discharge but felt to need ongoing therapies and will go today to our inpatient rehabilitation unit at the [facility]. PENDING TEST RESULTS: None MEDICATION CHANGES: Addition of Eliquis 5 mg twice daily Addition of FOLLOW-UP PLAN: She is transferred today to the inpatient rehabilitation center are [facility] for further therapies before eventually going home She should have chronic anticoagulation for atrial fibrillation She should be seen by primary care doctor in about a month with repeat TSH as her brand and form of thyroid replacement have been recently changed Greater than 35 minutes bedside and care coordination time today
[2017-12-16 11:57] VITALS: BP 149/75
--- NOTE | 2017-12-16 12:27 | ASMTCMCOM ---
CM Note CM Note Notes: Pt medically stable for d/c to [facility] inpatient rehab. RN Nu called report. Pt dghtr to transport. Orders to be obtained via [employer]. Date Signed: 12/16/2017 12:27 PM Electronically Signed By:JERRI Good
--- NOTE | 2017-12-16 12:30 | ASDISCHSUM ---
Discharge Information Plan Status:Inpatient Rehab Medically Cleared to Leave: Discharge Date:12/16/2017 12:22 PM D/C Disposition:[facility] ADT D/C Disposition:[facility] IP Projected Discharge Date:12/14/2017 11:00 AM Transportation at D/C:Family Discharge Delay Reason: Follow-Up Date:12/14/2017 11:00 AM Discharge Slot: Final Diagnosis: Placement Information Referral Type:*Long Term/SNF Referral ID:[id number] Provider Name: Address 1: Phone Number: Address 2: Fax Number: City: Selection Factors: State: Referral Type:Rehabilitation Hospital Referral ID:[id number] Provider Name:[facility] Address 1:[address] [place] [address] Phone Number: Address 2: Fax Number: [facility]:[place] Selection Factors: State:[place] Patient Contact Information Contact Name:YVETTEDARLENE Relationship:Daughter Address: City: Alternate Phone: State/Zip Code: Email: Financial Information Financial Class:Medicare Primary Plan Desc:MEDICARE INPATIENT Primary Plan Number:[id number] Secondary Plan Desc:AARP/MDR SUPPLEMENT Secondary Plan Number:[id number] Assessment Information [facility] CM Progress Note CM Note CM Note Notes: Pt in for stroke, dghtr Malina at bedside. 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 Pt and dghtr request SNF referrals to [facility] and [facility], [facility]. Pt was in [facility] four years ago. Penelope with [facility] is reviewing referral and reports she may not know bed availability unitl Thursday. Referral to [facility] pending, voicemail left for admissions at 14:00. Preferred SNF location is [place] since it is close to where dghtr lives in [place], [place]. [facility] inpat rehab assessing pt, can continue assessment Thursday but unknown if there is any bed availability and if [place] is still too far for dghtr. to follow. Date Signed: 12/11/2017 02:44 PM Electronically Signed By:JERRI Good [facility] Progress Note CM Note CM Note Notes: Penelope at [facility] [phone] reports they can clinically accept pt and will not know if they have a bed until Thursday. Chayo at [facility] [phone] still reviewing, reports pt would not be able to attend follow up appointments in [place], only [place]. Date Signed: 12/11/2017 05:03 PM Electronically Signed By:JERRI Good [facility] ITA Progress Note CM Note CM Note Notes: Spoke with Chayo, at [facility] in [place]; willing to accept pt; bed available Thursday, 12/14. Chayo states pt will need to have had a bowel movement 48 hrs prior to admission. Updated pt, pt's daughter, Shannan & RN. Chayo states pt will need to be at [facility] by early afternoon Thursday. Updated pt, Shannan & RN. Shannan agreeable to transporting pt. Chayo also reports pt's followup appointments will need to be scheduled in [place], not [place]. Asked Chayo if pt could attend followup appointments in [place] if her daughter drove her here. Chayo to discuss with Super[facility]ior on Thursday & let CM know. Pt is currently being followed by Neurology & will need to followup, at [facility] in [place], 1-4 weeks following dc from hospital. Updated RN, pt & Shannan; Shannan willing to drive pt to followup appointment in [place]. If [facility] won't let pt go to followup appointment in [place], appointment will need to be scheduled once pt is discharged from [facility]. Pt's daughter planning to visit [facility] in [place] this afternoon to make sure she wants pt to go there at time of dc. CM will follow. Dc plan-SNF Date Signed: 12/12/2017 02:39 PM Electronically Signed By:Tina Brar RN [facility] CM Progress Note CM Note CM Note Notes: Received phonecall from pt's daughter, Shannan; Shannan would now prefer pt not dc to [facility] in [place]. Shannan states she visited facility today & does not want her mother to go there; prefers [facility] in [place]. LVM with [facility] in [place] to check bed availabilty; awaiting callback. CM will continue to follow. Dc plan-SNF Date Signed: 12/12/2017 03:44 PM Electronically Signed By:Tina Brar RN [facility] CM Progress Note CM Note CM Note Notes: Spoke with Zakia, at [facility] in [place]; still unsure whether bed will available for pt tomorrow. Updated Zakia that pt no longer has a backup plan if [facility] doesn't have a bed for pt; explained pt no longer wants to go to [facility] in [place] & her daughter will need to spend today touring other SNFs because anticipated dc is tomorrow. Zakia contacted Director of [facility] in [place]; informed bed will be available for pt tomorrow. Updated pt, her daughter, & RN. Updates faxed; confirmed received CM will continue to follow. Dc plan-[facility] in [place] Date Signed: 12/13/2017 12:15 PM Electronically Signed By:Tina Brar RN [facility] CM Progress Note CM Note CM Note Notes: Today pt had rapid heart rate which is new, this made pt and dghtr nervous about going to SNF in [place]. Pt dghtr wants pt to be medically treated at [facility] if any new issues come up so today they decided they are agreeable to a [place] location for d/c. Pt appropriate for [facility] inpatient rehab and can d/c when medically stable. CM to follow. Date Signed: 12/14/2017 04:42 PM Electronically Signed By:JERRI Good [facility] CM Progress Note CM Note CM Note Notes: Pt medically stable for d/c to [facility] inpatient rehab. KALEB Judge called report. Pt dghtr to transport. Orders to be obtained via [employer]. Date Signed: 12/16/2017 12:27 PM Electronically Signed By:JERRI Good Intervention Information Intervention Type:*[facility]-Signed Date of Service:12/11/2017 11:59 AM Patient Type:Observation Staff Member:Dulce Maria Stock Hours: Discipline: Severity: Comment: Intervention Type:*IM-Signed Date of Service:12/16/2017 10:16 AM Patient Type:Inpatient Staff Member:Dulce Maria Stock Hours: Discipline: Severity: Comment:
== END 2017-12-16 12:22 | DRG 65 ==
LOC: EDUNIT# → OBSVTOIN 11:29 → INTOOBSV 11:29 → F3N 13:00
PROVIDERS: ADMIT Family Medicine; ATTEND Family Medicine
DX: I63.9 Cerebral infarction, unspecified (principal); G81.94 Hemiplegia, unspecified affecting left nondominant side; R00.0 Tachycardia, unspecified; I48.0 Paroxysmal atrial fibrillation; E03.9 Hypothyroidism, unspecified; E78.5 Hyperlipidemia, unspecified; M81.0 Age-related osteoporosis without current pathological fracture; I10 Essential (primary) hypertension; Z96.641 Presence of right artificial hip joint; Z87.891 Personal history of nicotine dependence; Z87.442 Personal history of urinary calculi; Z79.82 Long term (current) use of aspirin
CPT/HCPCS: 92523-GN; 96374; 97110-GO; 97110-GP; 97116-GP; 97162-GP; 97166-GO; 97530-GO; 97530-GP; 97535-GO; A9585; G0378; G8978-GP-CK; G8979-GP-CI; G8980-GP-CI; G8987-GO-CJ; G8988-GO-CI; G9168-GO-CI; G9169-GN-CI; G9170-GN-CI; J1200; J2930; Q9967

== ENCOUNTER 2017-12-15 15:14 | Inpatient (IN) | payer OTHER, MEDICARE ==
[2017-12-16] MEDS ORDERED: MELATONIN 3 MG TAB PO PRN (13:45)
[2017-12-16] MEDS ORDERED: ONDANSETRON DISINTEGRATING 4 MG TAB PO PRN (13:45)
[2017-12-16] MEDS ORDERED: MAGNESIUM HYDROXIDE 30 ML UDCUP PO PRN (13:46)
--- NOTE | 2017-12-16 15:28 | GHP ---
[f rep st] HISTORY AND PHYSICAL POST ADMISSION PHYSICIAN EVALUATION AND REHABILITATION TREATMENT PLAN DATE OF ADMISSION: 12/16/2017 DATE OF EVALUATION: 12/16/2017 TIME OF EVALUATION: 1335 REFERRING FACILITY: [facility]. REFERRING PHYSICIAN: Dr. Terrazas IMPAIRMENT GROUP: 1.2 DATE OF ONSET: 12/10/2017 CONSULTING PHYSICIANS: She was seen in consultation by neurologist, Dr. Herring. REHABLITATION DIAGNOSIS: Debility with eft-sided weakness, status post cerebrovascular accident. ETIOLOGIC DIAGNOSIS: Right body involvement (left brain). HISTORY OF PRESENT ILLNESS: This patient developed left upper and lower extremity weakness. Symptoms developed in the evening but she was able to sleep through the night. Symptoms had worsened in the morning. She was seen in the clinic in [place], [place] where a head CT was negative for any acute changes. She was transferred to [facility] where a CT angiogram of the head showed no acute changes. A transthoracic echo showed no cardiac thrombus, and an MRI of the brain showed a right-sided stroke around the internal capsule, concerning for an embolic source. She had an episode of sinus tachycardia and had a positive D-dimer, which prompted a chest CT. Chest CT was negative for pulmonary embolus, but a cystic mass was seen on the liver. She had a followup liver MRI which showed the lesion to be consistent with a benign cyst. Echocardiogram further showed normal systolic left ventricular function and right ventricular function. There was no intracardiac shunt. She had borderline dilated right atrium, trivial to mild tricuspid valve regurgitation and increased pulmonary artery pressure with a right ventricular systolic pressure of 39 mmHg. She participated in therapies and had some improvement in her condition and was appropriate for inpatient rehabilitation. OTHER STUDIES AND LABS DURING HER STAY: Basic metabolic profile was overall within normal limits. Hemoglobin A1c was normal at 5.9. Troponin I was negative at less than 0.012. TSH was normal at 0.932. She was slightly anemic when she first presented to the hospital with a hemoglobin of 12.3 and a hematocrit of 36.6. Subsequently on 12/14/2017, there was an elevated white blood cell count of 11.14 with no left shift and elevations of absolute neutrophils, lymphocytes and monocytes. There was no anemia and platelet count was normal. PRECAUTIONS: She is a fall risk. ACTIVE COMORBIDITIES: She has the tier 3 comorbidity of left hemiparesis. PAST MEDICAL HISTORY: 1. Atrial fibrillation, paroxysmal. 2. Right hip fracture. 3. Cystocele and rectocele. 4. Hypothyroidism. PAST SURGICAL HISTORY: She has had a right hip replacement, and she has had surgery to correct the cystocele and rectocele. PRE-HOSPITAL MEDICATIONS: 1. Aspirin 81 mg p.o. daily. 2. Atenolol 12.5 mg p.o. daily. 3. Levothyroxine 100 mcg p.o. daily. 4. Magnesium laxative 500 mg p.o. q.h.s. ALLERGIES: Listed to ciprofloxacin and iodinated contrast either IV or oral. She also has an allergy to sulfa antibiotics. SOCIAL HISTORY: She is and lives alone in a senior apartment in [place]. There are 5 steps to enter. She has a local adult daughter. She is a nonsmoker and a nondrinker. 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 She moved to [place] from [place] approximately 10 years ago. FAMILY HISTORY: Noncontributory. REVIEW OF SYSTEMS: She denies vision changes. She denies difficulty swallowing but says that sometimes she has some mucus from her lungs, which seems to get stuck in her throat, but she is eventually able to clear this with coughing. She acknowledges some weakness on the left upper and lower extremities, but says these have been improving. She denies weight change, fevers, chills, cough, dyspnea. She has no chest pain. She is not aware of palpitations. She denies dysuria or urinary frequency. There is no nausea, vomiting, constipation or diarrhea. She reports she takes 500 mg of milk of magnesia in a tablet form every night at bedtime and if she does not do this, she can become constipated. There is no dysuria or urinary frequency. There is no joint pain or joint swelling. She has had poor sleep during her hospitalization due to frequent interruptions through the night for nursing assessments and other cares. PHYSICAL EXAMINATION: VITAL SIGNS: This morning in the hospital, blood pressure was 149/75 and has ranged from 106-156 systolic and 101-63 diastolic. Heart rate was 77, respiratory rate was 16, oxygen saturation was 94% on room air. Temperature was 36.6 degrees centigrade. Weight was 69.9 kg for a body mass index of 22.1. GENERAL: This is a well-nourished, well-developed woman, appears her chronologic age, cooperative and in no acute distress. HEENT: Extraocular movements are intact. Pupils are equal, round, and reactive to light. Mucous membranes are moist. Dentition is in good condition. There were no oropharyngeal mucosal lesions seen and there was no posterior oropharyngeal mucus. NECK: Supple. HEART: There is a regular rate and rhythm with no murmurs, rubs, or gallops. LUNGS: Clear to auscultation bilaterally. ABDOMEN: Soft, nontender, nondistended with normoactive bowel sounds and no hepatosplenomegaly. EXTREMITIES: There is no cyanosis or clubbing. There is trace edema pretibial above her socks. Radial and dorsalis pedis pulses are 2+ bilaterally. NEUROLOGIC: She is alert and oriented x3. Cranial nerves 2-12 are grossly intact. On motor testing, she is 5/5 on the right upper and lower extremities. In the left upper extremity hand patient financial advocate is 5/5 , biceps flexion is 4/5, triceps extension is 3/5 and on shoulder abduction is 4 /5. In the lower extremity, hip flexor is 2/5 to 3/5. She has antigravity strength but cannot maintain against any opposing force. Quadriceps are 5/5 and hamstrings are 4/5. Sensation overall is intact to light touch but she has loss of sensation bilaterally in the feet in a stocking distribution. Deep tendon reflexes are 2+ bilaterally at the biceps, 3+ at the left patella and 2+ at the right patella and hypoactive bilaterally at the Achilles tendons. Plantar reflex is downgoing on the left and indeterminate on the right. There is no pronator drift. She has a mild resting tremor of the right hand, and she has mild rigidity, more so in extension than flexion at the right elbow. SKIN: There are no lesions noted. Skin is warm and dry. CURRENT LEVEL OF FUNCTION PER THE PRE-ADMISSION SCREEN: Regarding diet, feeding and swallowing, she was independent and taking a regular diet. Grooming was done with standby assist. Showering required contact guard assist and voice cues for safety due to decreased balance and stability. She used grab bars and a walker. Lower body dressing was done with contact guard assist. Toileting was done with contact guard assist. She was continent of bowel and bladder. She was able to transfer with minimal assist and voice cues for safety. She used a front-wheeled walker. Balance required contact guard to minimal assist. Endurance was fair. She was able to walk 200 feet with a front-wheeled walker, contact guard to minimal assist. She needed cues to lift the left foot and for upright posture and head, she needed cues to increase her base of support. Communication was within functional limits. Regarding cognition, she was noted to have mild impairment in memory. She was considered a fall risk. IMPRESSION: This is an 82-year-old woman who suffered a stroke to the right internal capsule with left upper and lower extremity weakness and ataxia. She was outside of the window for tPA. Stroke on MRI appeared to be likely embolic in nature. She has a history of paroxysmal atrial fibrillation and was noted to be intermittently in atrial fibrillation on monitoring in the hospital. She also had an episode of sinus tachycardia, which prompted an evaluation for pulmonary embolus and this was negative. Cystic mass was seen on the dome of the liver and so there was a followup MRI which showed it to be a benign cystic lesion. She subsequently had effective rate control with atenolol, and blood pressure was generally within target range but occasionally elevated. She was briefly on warfarin during her hospitalization, but then was changed to apixaban, and she had a subcutaneous heparinoid for prevention of thromboembolic disease prior to the initiation of apixaban. Additionally, she is on aspirin with unclear indication for both medications simultaneously. She was also started on rosuvastatin to prevent subsequent stroke. She is appropriate for inpatient rehabilitation with significant deficits to mobility, activities of daily living and cognition. She will benefit from skilled therapies to optimize her function as well as care of nurse and physician for medications, fall risk, symptom management, and comorbidities. Her goal is to complete a rehabilitation stay and then to return home with home care services. For a safe discharge she will need to achieve independence with eating, grooming, and bed mobility, and modified independence for transfers, dressing and ambulation with the least restrictive device. It is expected she will incorporate the use of her left upper extremity automatically during ADLs and functional tasks. It is likely that she will require assistance for household management, shopping, and some meal preparation. She will have therapy with physical therapy, occupational therapy, and speech and language pathology for 60 minutes per day on 5-7 days of the week. Her expected duration of stay is 7-10 days. It is anticipated that upon discharge she will continue to benefit from home health services including nursing, occupational therapy, and physical therapy. Additionally, she will benefit from a stroke support group. PLAN: 1. Cerebrovascular accident with left-sided weakness. PT and OT to optimize functional status to the independent or modified independent level for discharge home alone. 2. Cognitive impairment due to the stroke. Assessment and treatment per speech and language pathology, with the goal of being safe alone at home. 3. Paroxysmal atrial fibrillation. She has been started on apixaban. This was discussed with her pharmacy, the [facility] in [place]. She will have a high co-pay for the first dose, but afterwards this medication will be covered by apixaban. She received a coupon for her first prescription from the discharging hospital and this may cover the expense of the first month. It will be discussed further with the patient and her daughter whether to continue with apixaban or to consider treating with warfarin, which would be much less expensive. Continue atenolol for rate control. Unclear whether she needs simultaneous aspirin and this will be further investigated. 4. Hypothyroidism. Continue levothyroxine. 5. Dyslipidemia. Continue rosuvastatin. 6. Poor sleep in the hospital. She will have much less disturbance in the inpatient rehabilitation unit. Will observe hours of sleep and consider use of a hypnotic if it is indicated. 7. Pulmonary hypertension, mild. She appears to be compensated with no hypoxia during her stay at the acute care hospital. 8. Benign hepatic cyst. 9. Tachycardia of unclear etiology. Pulmonary embolus was ruled out and TSH was normal. She is no longer tachycardic. She will be monitored with further investigations as indicated. Followup. There are no specific plans for followup indicated in discharge paperwork other than to see her primary care provider and to have a repeat TSH in approximately a month. /[id number]/MODL MTDD
[2017-12-16] MEDS: APIXABAN 5 MG TAB PO SCH (20:35)
[2017-12-17] MEDS: LEVOTHYROXINE 100 MCG TAB PO SCH (05:15)
[2017-12-17] MEDS: ROSUVASTATIN CALCIUM 20 MG TAB PO SCH (08:39)
[2017-12-17] MEDS: ATENOLOL 25 MG TAB PO SCH (08:39)
[2017-12-17] MEDS: APIXABAN 5 MG TAB PO SCH ×2 (08:41→20:41)
[2017-12-17] MEDS ORDERED: ROSUVASTATIN CALCIUM 10 MG TAB PO SCH (09:00)
[2017-12-17] MEDS ORDERED: ASPIRIN 81 MG CHEWABLE TAB PO SCH (09:00)
--- NOTE | 2017-12-17 14:37 | SOAPPROG ---
SOAP Progress Note Assessment/Plan: Assessment: * Cerebrovascular accident with left-sided weakness and deficit to mobility. * PT and OT to optimize functional status to the independent or modified independent level for discharge home alone. * Cognitive impairment due to the stroke. Assessment and treatment per speech and language pathology, with the goal of being safe alone at home. * Paroxysmal atrial fibrillation. Continue apixaban. This was discussed with her pharmacy, the [facility] in [place]. She will have a high co-pay for the first dose, but afterwards this medication will be covered by apixaban. * Continue atenolol for rate control. * Neurology note reviewed. No indication for aspirin while on apixaban. Will discontinue aspirin. * Urinary frequency. Check PVR. * Hypothyroidism. Continue levothyroxine. * Dyslipidemia. Continue rosuvastatin. * Poor sleep in the hospital. * Improved. No indication for hypnotic. Continue to monitor. * Pulmonary hypertension, mild. She appears to be compensated with no hypoxia. * Benign hepatic cyst. * Tachycardia of unclear etiology. Pulmonary embolus was ruled out and TSH was normal, with recent change from [place] thyroid to levothyroxine. * She is no longer tachycardic. She will be monitored with further investigations as indicated. Followup. There are no specific plans for followup indicated in discharge paperwork other than to see her primary care provider and to have a repeat TSH in approximately a month. 12/17/17 14:58 Subjective: No complaints this morning. Fell sleep well, awoke at 3:15 a.m. To urinate, retain sleep but then was up early. Took a nice nap this afternoon. She thinks that she is urinating more than she usually does. She notes some difficulty with walking. No fevers or chills, no cough or dyspnea. Objective: Vital Signs Temp Pulse Resp BP Pulse Ox 36.8 C 76 16 121/72 H 94 12/17/17 05:35 12/17/17 08:39 12/17/17 05:35 12/17/17 08:39 12/17/17 05:35 12/16/17 12/17/17 12/18/17 05:59 05:59 05:59 Intake Total 660 560 Output Total 625 300 Balance 35 260 Physical Exam - Physical Exam General Appearance: WD/WN, alert, no apparent distress Respiratory: normal breath sounds, No crackles, No rhonchi, No wheezing Cardiac/Chest: regular rate, rhythm, No edema, No JVD, No diastolic murmur, No systolic murmur Skin: normal color, warm/dry Neuro/Psych: alert, normal mood/affect, oriented x 3, abnormal gait ICD10 Worksheet Patient Problems: Problems Problem Status Onset Acute ischemic stroke Acute CVA (cerebral vascular accident) Acute
[2017-12-18] MEDS: LEVOTHYROXINE 100 MCG TAB PO SCH (05:59)
[2017-12-18] MEDS: ATENOLOL 25 MG TAB PO SCH (08:17)
[2017-12-18] MEDS: ROSUVASTATIN CALCIUM 20 MG TAB PO SCH (08:17)
[2017-12-18] MEDS: APIXABAN 5 MG TAB PO SCH ×2 (08:17→21:15)
--- NOTE | 2017-12-18 09:35 | SOAPPROG ---
SOAP Progress Note Assessment/Plan: Assessment: * CALF PAIN-PER NURSING. ASKED TO SEE PATIENT EARLY THIS MORNING DUE TO PATIENT 'S COMPLAINT OF BILATERAL CALF PAIN. BY HISTORY PATIENT STATES THAT THIS HAS PRECEDED HER RECENT HOSPITALIZATION. SHE REPORTS THAT HER CALFS ARE USUALLY TENDER TO THE TOUCH. SHE DOES NOT RELAYS SYMPTOMS CONSISTENT WITH NEUROGENIC CLAUDICATION. SHE STATES SHE HAS BEEN TOLD IN THE PAST THAT SHE MAY HAVE POOR CIRCULATION IN HER FEET BUT SHE DOES NOT RECALL HAVING LOWER EXTREMITY VASCULAR STUDIES OR ANKLE BRACHIAL INDICES. BY EXAM, THERE IS NO ERYTHEMA, TENDERNESS, SWELLING OR PALPABLE CORDS IN THE CALVES. SHE HAS ADEQUATE CAPILLARY REFILL IN BOTH FEET. SUSPICION FOR DEEP VENOUS THROMBOSIS IS LOW AND THEREFORE OPTED NOT TO OBTAIN VENOUS DOPPLER STUDIES. DR. CRABTREE MAY WANT TO OBTAIN ANKLE-BRACHIAL INDICES NEXT WEEK. * Cerebrovascular accident with left-sided weakness and deficit to mobility. * PT and OT to optimize functional status to the independent or modified independent level for discharge home alone. * Cognitive impairment due to the stroke. Assessment and treatment per speech and language pathology, with the goal of being safe alone at home. * Paroxysmal atrial fibrillation. Continue apixaban. This was discussed with her pharmacy, the [facility] in [place]. She will have a high co-pay for the first dose, but afterwards this medication will be covered by apixaban. I WILL ASK THE ASSISTANT PARALEGAL TO SEE SHE HAS SOME TYPE OF ASSISTANCE SHE CAN GET HER PLUGGED INTO TO HELP REDUCE THE COST OF THE APIXABAN. * Continue atenolol for rate control. * Neurology note reviewed. No indication for aspirin while on apixaban. Will discontinue aspirin. * Urinary frequency. Check PVR. * Hypothyroidism. Continue levothyroxine. * Dyslipidemia. Continue rosuvastatin. * Poor sleep in the hospital. * Improved. No indication for hypnotic. Continue to monitor. * Pulmonary hypertension, mild. She appears to be compensated with no hypoxia. * Benign hepatic cyst. * Tachycardia of unclear etiology. Pulmonary embolus was ruled out and TSH was normal, with recent change from [place] thyroid to levothyroxine. * She is no longer tachycardic. She will be monitored with further investigations as indicated. Followup. There are no specific plans for followup indicated in discharge paperwork other than to see her primary care provider and to have a repeat TSH in approximately a month. 12/17/17 14:58 Subjective: Plan: 12/18/17 09:31 Subjective: MILD BILATERAL CALF TENDERNESS THIS MORNING WHICH SHE NOTES ONLY OCCURS DURING PALPATION. SHE DOES NOT REPORT SYMPTOMS CONSISTENT WITH NEUROGENIC CLAUDICATION. Objective: Vital Signs Temp Pulse Resp BP Pulse Ox 36.4 C 92 16 127/79 H 94 12/18/17 06:15 12/18/17 08:17 12/18/17 06:15 12/18/17 08:17 12/18/17 06:15 12/17/17 12/18/17 12/19/17 05:59 05:59 05:59 Intake Total 660 1170 360 Output Total 625 1500 Balance 35 -330 360 Physical Exam - Physical Exam General Appearance: WD/WN, alert, no apparent distress Respiratory: lungs clear, normal breath sounds Cardiac/Chest: irregularly irregular, No edema Abdomen: non-tender, soft Skin: normal color, warm/dry, cyanosis, other (BOTH FEET ARE SLIGHTLY DUSKY. ADEQUATE CAPILLARY REFILL.) Extremities: non-tender, No calf tenderness, No swelling, No Uzma's sign ICD10 Worksheet Patient Problems: Problems Problem Status Onset Acute ischemic stroke Acute CVA (cerebral vascular accident) Acute
[2017-12-19] MEDS: LEVOTHYROXINE 100 MCG TAB PO SCH (05:26)
[2017-12-19] MEDS: ATENOLOL 25 MG TAB PO SCH (08:09)
[2017-12-19] MEDS: ROSUVASTATIN CALCIUM 20 MG TAB PO SCH (08:11)
[2017-12-19] MEDS: APIXABAN 5 MG TAB PO SCH ×2 (08:11→21:06)
--- NOTE | 2017-12-19 10:51 | SOAPPROG ---
SOAP Progress Note Assessment/Plan: Assessment/Plan Ms. 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 * Cerebrovascular accident with left-sided weakness and deficit to mobility. * PT and OT to optimize functional status to the independent or modified independent level for discharge home alone. * Cognitive impairment due to the stroke. Assessment and treatment per speech and language pathology, with the goal of being safe alone at home. * Paroxysmal atrial fibrillation. Continue apixaban. This was discussed with her pharmacy, the [facility] in [place]. She will have a high co-pay for the first dose, but afterwards this medication will be covered by apixaban. I WILL ASK THE EXPERIMENTAL BOX TESTER TO SEE SHE HAS SOME TYPE OF ASSISTANCE SHE CAN GET HER PLUGGED INTO TO HELP REDUCE THE COST OF THE APIXABAN. * Continue atenolol for rate control. * Neurology note reviewed. No indication for aspirin while on apixaban. Will discontinue aspirin. * Urinary frequency. Check PVR. * Hypothyroidism. Continue levothyroxine. * Dyslipidemia. Continue rosuvastatin. * Poor sleep in the hospital. * Improved. No indication for hypnotic. Continue to monitor. * Pulmonary hypertension, mild. She appears to be compensated with no hypoxia. * Benign hepatic cyst. * Tachycardia of unclear etiology. Pulmonary embolus was ruled out and TSH was normal, with recent change from [place] thyroid to levothyroxine. * She is no longer tachycardic. She will be monitored with further investigations as indicated. Followup. There are no specific plans for followup indicated in discharge paperwork other than to see her primary care provider and to have a repeat TSH in approximately a month. 12/19/17 10:47 Subjective: No new concerns this morning. Feeling well - no new fevers/chills. Tolerating the blood thinner well without evidence of bleeding. Objective: Vital Signs Temp Pulse Resp BP Pulse Ox 37.1 C 94 14 133/72 H 94 12/19/17 05:37 12/19/17 08:00 12/19/17 05:37 12/19/17 08:00 12/19/17 05:37 12/18/17 12/19/17 12/20/17 05:59 05:59 05:59 Intake Total 1170 1180 240 Output Total 1500 200 Balance -330 980 240 Physical Exam - Physical Exam General Appearance: alert, no apparent distress EENT: other (MMM) Respiratory: lungs clear, normal breath sounds Cardiac/Chest: regular rate, rhythm Abdomen: normal bowel sounds, non-tender Skin: normal color Neuro/Psych: alert, normal mood/affect ICD10 Worksheet Patient Problems: Problems Problem Status Onset Acute ischemic stroke Acute CVA (cerebral vascular accident) Acute
[2017-12-20] MEDS: LEVOTHYROXINE 100 MCG TAB PO SCH (05:29)
[2017-12-20] MEDS: ROSUVASTATIN CALCIUM 20 MG TAB PO SCH (08:13)
[2017-12-20] MEDS: APIXABAN 5 MG TAB PO SCH ×2 (08:13→20:16)
[2017-12-20] MEDS: ATENOLOL 25 MG TAB PO SCH (08:13)
--- NOTE | 2017-12-20 10:23 | SOAPPROG ---
SOAP Progress Note Assessment/Plan: Assessment/Plan Ms. 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 * Cerebrovascular accident with left-sided weakness and deficit to mobility. * PT and OT to optimize functional status to the independent or modified independent level for discharge home alone. * Cognitive impairment due to the stroke. Assessment and treatment per speech and language pathology, with the goal of being safe alone at home. * Paroxysmal atrial fibrillation. Continue apixaban. This was discussed with her pharmacy, the [facility] in [place]. She will have a high co-pay for the first dose, but afterwards this apixiban will be covered. I WILL ASK THE SLOPE TENDER TO SEE SHE HAS SOME TYPE OF ASSISTANCE SHE CAN GET HER PLUGGED INTO TO HELP REDUCE THE COST OF THE APIXABAN. * Continue atenolol for rate control. * Neurology note reviewed. No indication for aspirin while on apixaban. Will discontinue aspirin. * Urinary frequency. Check PVR- have been OK * Hypothyroidism. Continue levothyroxine. * Dyslipidemia. Continue rosuvastatin. * Poor sleep in the hospital. * Improved- Continue to monitor. * Pulmonary hypertension, mild. She appears to be compensated with no hypoxia. * Benign hepatic cyst. * Tachycardia of unclear etiology. Pulmonary embolus was ruled out and TSH was normal, with recent change from [place] thyroid to levothyroxine. * She is no longer tachycardic. She will be monitored with further investigations as indicated. Followup. There are no specific plans for followup indicated in discharge paperwork other than to see her primary care provider and to have a repeat TSH in approximately a month. 12/20/17 10:22 Subjective: Feeling pretty good today - slept well. Voiding well without any leaking. No sob/cp Objective: Vital Signs Temp Pulse Resp BP Pulse Ox 36.5 C 75 16 113/64 91 L 12/20/17 06:43 12/20/17 06:43 12/20/17 06:43 12/20/17 06:43 12/20/17 06:43 12/19/17 12/20/17 12/21/17 05:59 05:59 05:59 Intake Total 1180 740 480 Output Total 200 301 Balance 980 439 480 Physical Exam - Physical Exam General Appearance: alert EENT: PERRL/EOMI Neck: non-tender Respiratory: lungs clear Cardiac/Chest: normal peripheral pulses Abdomen: non-tender, soft Skin: normal color Neuro/Psych: alert, normal mood/affect ICD10 Worksheet Patient Problems: Problems Problem Status Onset Acute ischemic stroke Acute CVA (cerebral vascular accident) Acute
[2017-12-21] MEDS: LEVOTHYROXINE 100 MCG TAB PO SCH (04:50)
[2017-12-21] MEDS: ROSUVASTATIN CALCIUM 20 MG TAB PO SCH (09:27)
[2017-12-21] MEDS: APIXABAN 5 MG TAB PO SCH ×2 (09:27→21:24)
[2017-12-21] MEDS: ATENOLOL 25 MG TAB PO SCH (09:27)
--- NOTE | 2017-12-21 14:54 | SOAPPROG ---
SOAP Progress Note Assessment/Plan: Assessment: * Cerebrovascular accident with left-sided weakness and deficit to mobility. * Progressing towards independence or modified independence with ADLs. Walking 50-149 feet. Has bilateral Trendelenburg gait and working with PT on glued activation. * Continue PT and OT to optimize functional status to the independent or modified independent level for discharge home alone. * Cognitive impairment due to the stroke. * Mild deficits to attention, memory and problem solving/reasoning. * Continue speech and language pathology, with the goal of being safe alone at home. * Paroxysmal atrial fibrillation. Continue apixaban. This was discussed with her pharmacy, the [facility] in [place]. She will have a high co-pay for the first dose, but afterwards this medication will be covered by apixaban. * Continue atenolol for rate control. * Neurology note reviewed. No indication for aspirin while on apixaban. Will discontinue aspirin. * Urinary frequency. Check PVR PRN. * Hypothyroidism. Continue levothyroxine. * Dyslipidemia. Continue rosuvastatin. * Poor sleep in the hospital. * Improved. No indication for hypnotic. Continue to monitor. * Pulmonary hypertension, mild. She appears to be compensated with no hypoxia. * Benign hepatic cyst. * Tachycardia of unclear etiology. Pulmonary embolus was ruled out and TSH was normal, with recent change from [place] thyroid to levothyroxine. * She is no longer tachycardic. She will be monitored with further investigations as indicated. Followup. There are no specific plans for followup indicated in discharge paperwork other than to see her primary care provider and to have a repeat TSH in approximately a month. 12/21/17 14:55 Subjective: No complaints. Working with therapy. Sleeping well. Not in pain. Objective: Vital Signs Temp Pulse Resp BP Pulse Ox 36.4 C 72 18 138/74 H 94 12/21/17 05:22 12/21/17 05:22 12/21/17 05:22 12/21/17 05:22 12/21/17 05:22 12/20/17 12/21/17 12/22/17 05:59 05:59 05:59 Intake Total 740 1780 660 Output Total 301 1 Balance 439 1779 660 Physical Exam - Physical Exam General Appearance: WD/WN, alert, no apparent distress Respiratory: No respiratory distress, No accessory muscle use Skin: normal color, warm/dry Neuro/Psych: alert, normal mood/affect, oriented x 3, motor weakness (Working with PT at the rail in the [place] on bilateral glute activation.) ICD10 Worksheet Patient Problems: Problems Problem Status Onset Acute ischemic stroke Acute CVA (cerebral vascular accident) Acute
[2017-12-22] MEDS: LEVOTHYROXINE 100 MCG TAB PO SCH (05:12)
[2017-12-22] MEDS: ROSUVASTATIN CALCIUM 20 MG TAB PO SCH (08:43)
[2017-12-22] MEDS: APIXABAN 5 MG TAB PO SCH ×2 (08:43→20:26)
[2017-12-22] MEDS: ATENOLOL 25 MG TAB PO SCH (08:45)
--- NOTE | 2017-12-22 16:09 | SOAPPROG ---
SOAP Progress Note Assessment/Plan: Assessment: * Cerebrovascular accident with left-sided weakness and deficit to mobility. * Progressing towards independence or modified independence with ADLs. Walking 50-149 feet. Has bilateral Trendelenburg gait and working with PT on glute activation. * Continue PT and OT to optimize functional status to the independent or modified independent level for discharge home alone. * Cognitive impairment due to the stroke. * Mild deficits to attention, memory and problem solving/reasoning. * Continue speech and language pathology, with the goal of being safe alone at home. * Paroxysmal atrial fibrillation. Continue apixaban. This was discussed with her pharmacy, the [facility] in [place]. She will have a high co-pay for the first dose, but afterwards this medication will be covered by apixaban. * Continue atenolol for rate control. * Neurology note reviewed. No indication for aspirin while on apixaban. Will discontinue aspirin. * Urinary frequency. Check PVR PRN. * Hypothyroidism. Continue levothyroxine. * Dyslipidemia. Continue rosuvastatin. * Poor sleep in the hospital. * Improved. No indication for hypnotic. Continue to monitor. * Pulmonary hypertension, mild. She appears to be compensated with no hypoxia. * Benign hepatic cyst. * Tachycardia of unclear etiology. Pulmonary embolus was ruled out and TSH was normal, with recent change from [place] thyroid to levothyroxine. * She is no longer tachycardic. She will be monitored with further investigations as indicated. Followup. There are no specific plans for followup indicated in discharge paperwork other than to see her primary care provider and to have a repeat TSH in approximately a month. 12/22/17 16:08 Subjective: Concerned about low diastolic blood pressure. Denies dizziness while standing. Feels fatigued after a day of therapy. No fevers or chills, no cough or dyspnea. Objective: Vital Signs Temp Pulse Resp BP Pulse Ox 36.4 C 91 16 108/64 91 L 12/22/17 05:55 12/22/17 08:45 12/22/17 05:55 12/22/17 08:45 12/22/17 05:55 12/21/17 12/22/17 12/23/17 05:59 05:59 05:59 Intake Total 1780 1416 600 Output Total 1 Balance 1779 1416 600 Physical Exam - Physical Exam General Appearance: WD/WN, alert, no apparent distress Respiratory: normal breath sounds, No crackles, No rhonchi, No wheezing Cardiac/Chest: regular rate, rhythm, No edema, No diastolic murmur, No systolic murmur Skin: normal color, warm/dry Neuro/Psych: alert, normal mood/affect, oriented x 3 ICD10 Worksheet Patient Problems: Problems Problem Status Onset Acute ischemic stroke Acute CVA (cerebral vascular accident) Acute
[2017-12-23] MEDS: LEVOTHYROXINE 100 MCG TAB PO SCH ×2 (05:23→06:33)
[2017-12-23] MEDS: APIXABAN 5 MG TAB PO SCH ×2 (08:33→21:32)
[2017-12-23] MEDS: ATENOLOL 25 MG TAB PO SCH (08:33)
[2017-12-23] MEDS: ROSUVASTATIN CALCIUM 20 MG TAB PO SCH (08:35)
--- NOTE | 2017-12-23 16:47 | SOAPPROG ---
SOAP Progress Note Assessment/Plan: Assessment: * Cerebrovascular accident with left-sided weakness and deficit to mobility. * Progressing towards independence or modified independence with ADLs. Walking 50-149 feet. Has bilateral Trendelenburg gait and working with PT on gluteus activation. * Continue PT and OT to optimize functional status to the independent or modified independent level for discharge home alone. * Cognitive impairment due to the stroke. * Mild deficits to attention, memory and problem solving/reasoning. * Continue speech and language pathology, with the goal of being safe alone at home. * Paroxysmal atrial fibrillation. Continue apixaban. This was discussed with her pharmacy, the [facility] in [place]. She will have a high co-pay for the first dose, but afterwards this medication will be covered by insurance. * Continue atenolol for rate control. * Neurology note reviewed. No indication for aspirin while on apixaban. Will discontinue aspirin. * Urinary frequency. Check PVR PRN. * Hypothyroidism. Continue levothyroxine. * Dyslipidemia. Continue rosuvastatin. * Poor sleep in the hospital. * Improved. No indication for hypnotic. Continue to monitor. * Pulmonary hypertension, mild. She appears to be compensated with no hypoxia. * Benign hepatic cyst. * Tachycardia of unclear etiology. Pulmonary embolus was ruled out and TSH was normal, with recent change from [place] thyroid to levothyroxine. * She is no longer tachycardic. She will be monitored with further investigations as indicated. Followup. There are no specific plans for followup indicated in discharge paperwork other than to see her primary care provider and to have a repeat TSH in approximately a month. 12/23/17 16:45 Subjective: No complaints, other than fatigue from working with therapies. Slept well. Not in pain. Has some concerns about the ventral ability to S and 45 steps into her home. Objective: Vital Signs Temp Pulse Resp BP Pulse Ox 36.4 C 90 16 115/69 94 12/23/17 05:28 12/23/17 08:33 12/23/17 05:28 12/23/17 08:33 12/23/17 05:28 12/22/17 12/23/17 12/24/17 05:59 05:59 05:59 Intake Total 1416 1610 480 Balance 1416 1610 480 Physical Exam - Physical Exam General Appearance: WD/WN, alert, no apparent distress Respiratory: normal breath sounds, No crackles, No rhonchi, No wheezing Cardiac/Chest: regular rate, rhythm, No edema, No diastolic murmur, No systolic murmur Skin: normal color, warm/dry Neuro/Psych: alert, normal mood/affect, oriented x 3 ICD10 Worksheet Patient Problems: Problems Problem Status Onset Acute ischemic stroke Acute CVA (cerebral vascular accident) Acute
[2017-12-24] MEDS: LEVOTHYROXINE 100 MCG TAB PO SCH (06:58)
[2017-12-24] MEDS: ROSUVASTATIN CALCIUM 20 MG TAB PO SCH (07:59)
[2017-12-24] MEDS: APIXABAN 5 MG TAB PO SCH ×2 (07:59→20:27)
[2017-12-24] MEDS: ATENOLOL 25 MG TAB PO SCH (08:00)
--- NOTE | 2017-12-24 14:00 | SOAPPROG ---
SOAP Progress Note Assessment/Plan: Assessment: * Cerebrovascular accident with left-sided weakness and deficit to mobility. * Initial functional independence measure 87 on 12/18/2017. Progressing towards independence or modified independence with ADLs. Walking 200 feet. Has bilateral Trendelenburg gait and working with PT on gluteus activation. * Continue PT and OT to optimize functional status to the independent or modified independent level for discharge home alone. * Cognitive impairment due to the stroke. * Mild deficits to attention, memory and problem solving/reasoning. * Continue speech and language pathology, with the goal of being safe alone at home. * Paroxysmal atrial fibrillation. Continue apixaban. This was discussed with her pharmacy, the [facility] in [place]. She will have a high co-pay for the first dose, but afterwards this medication will be covered by insurance. * Continue atenolol for rate control. * Neurology note reviewed. No indication for aspirin while on apixaban. Will discontinue aspirin. * Urinary frequency. Check PVR PRN. * Hypothyroidism. Continue levothyroxine. TSH was normal in the hospital. * Fatigue. Likely due to deconditioning. Hypothyroidism does not contribute. Continue efforts per PT and OT. * Dyslipidemia. Continue rosuvastatin. * Poor sleep in the hospital. * Improved. No indication for hypnotic. Uses melatonin occasionally. Continue to monitor. * Pulmonary hypertension, mild, and history of bronchiectasis.. She appears to be compensated with no hypoxia. * Benign hepatic cyst. * Tachycardia of unclear etiology. Pulmonary embolus was ruled out and TSH was normal, with recent change from [place] thyroid to levothyroxine. * She is no longer tachycardic. She will be monitored with further investigations as indicated. Followup. There are no specific plans for followup indicated in discharge paperwork other than to see her primary care provider and to have a repeat TSH in approximately a month. This patient needs a walker. She has a mobility limitation that significantly impairs 1 or more mobility related ADLs in the home, she is able to use the walker safely, and the functional mobility deficit cannot be resolved with a cane. 12/24/17 13:54 Subjective: Reports fatigue after therapies today. Sleeping well. Walking further distances. Says she practiced getting in and out of a vehicle today. Otherwise no complaints. Objective: Vital Signs Temp Pulse Resp BP Pulse Ox 37.1 C 83 18 103/59 L 93 12/24/17 08:00 12/24/17 08:00 12/24/17 08:00 12/24/17 08:00 12/24/17 08:00 12/23/17 12/24/17 12/25/17 05:59 05:59 05:59 Intake Total 1610 1313 720 Output Total 100 Balance 1610 1213 720 Physical Exam - Physical Exam General Appearance: WD/WN, alert, no apparent distress Respiratory: No respiratory distress, No accessory muscle use Skin: normal color, warm/dry Neuro/Psych: alert, normal mood/affect, oriented x 3 ICD10 Worksheet Patient Problems: Problems Problem Status Onset Acute ischemic stroke Acute CVA (cerebral vascular accident) Acute
[2017-12-25] MEDS: LEVOTHYROXINE 100 MCG TAB PO SCH (06:34)
[2017-12-25] MEDS: ROSUVASTATIN CALCIUM 20 MG TAB PO SCH (08:35)
[2017-12-25] MEDS: APIXABAN 5 MG TAB PO SCH ×2 (08:38→20:39)
[2017-12-25] MEDS: ATENOLOL 25 MG TAB PO SCH (08:40)
--- NOTE | 2017-12-25 09:42 | SOAPPROG ---
SOAP Progress Note Assessment/Plan: Assessment: * Cerebrovascular accident with left-sided weakness and deficit to mobility. * Initial functional independence measure 87 on 12/18/2017, improved to 107 as of 12/25/2017. Progressing to independent in her room today. Safer with a front wheeled walker than a 4 wheeled walker. Climbed 9 stairs with 1 rail. Modified independence for ADLs except supervision to standby assist for bath transfer and bathing. * Continue PT and OT to optimize functional status to the independent or modified independent level for discharge home alone. * Cognitive impairment due to the stroke. * Very mild deficits to attention, memory and problem solving/reasoning. 100% accuracy with filling her med box. * Continue speech and language pathology, with the goal of being safe alone at home. * Paroxysmal atrial fibrillation. Continue apixaban. This was discussed with her pharmacy, the [facility] in [place]. She will have a high co-pay for the first dose, but afterwards this medication will be covered by insurance. * Discontinue atenolol as her blood pressure is running low. If she has tachycardia, would favor initiating metoprolol 12.5 mg twice daily for better 24 hr control. * Neurology note reviewed. No indication for aspirin while on apixaban. Will discontinue aspirin. * Hypotension. BMP within normal limits. TSH somewhat suppressed. Stopping atenolol. * Urinary frequency. Check PVR PRN. * Hypothyroidism. Reduce levothyroxine from 100 mcg q.day to 88 mcg q.day. Recheck TSH in 4-6 weeks. * Fatigue. Likely due to deconditioning. Hypothyroidism does not contribute. Continue efforts per PT and OT. * Dyslipidemia. Continue rosuvastatin. * Poor sleep in the hospital. * Improved. No indication for hypnotic. Uses melatonin occasionally. Continue to monitor. * Pulmonary hypertension, mild, and history of bronchiectasis.. She appears to be compensated with no hypoxia. * Benign hepatic cyst. * Tachycardia of unclear etiology. Pulmonary embolus was ruled out and TSH was normal, with recent change from [place] thyroid to levothyroxine. * She is no longer tachycardic. She will be monitored with further investigations as indicated. DISPOSITION: Attended staffing, 15 min. Discussed with case management, dietitian, nursing, PT, OT, DRY HOUSE ATTENDANT. Attended family conference, 30 min, patient and her daughter in attendance. Goal is independent function and ability to safely negotiate 5 stairs to enter the house. Discharge date set for 2017. Followup. There are no specific plans for followup indicated in discharge paperwork other than to see her primary care provider and to have a repeat TSH in approximately a month. Primary care provider is in [place]. This patient needs a walker. She has a mobility limitation that significantly impairs 1 or more mobility related ADLs in the home, she is able to use the walker safely, and the functional mobility deficit cannot be resolved with a cane. 12/25/17 15:16 Subjective: Continues to complain of fatigue. She feels her mobility is improving. She reports that therapy says she might be cleared to ambulate independently in the room today. Sleeping well, no cough or dyspnea. Objective: Vital Signs Temp Pulse Resp BP Pulse Ox 36.7 C 90 15 101/55 L 94 12/25/17 06:42 12/25/17 08:40 12/25/17 06:42 12/25/17 08:40 12/25/17 06:42 12/24/17 12/25/17 12/26/17 05:59 05:59 05:59 Intake Total 1313 920 480 Output Total 100 750 Balance 1213 170 480 Physical Exam - Physical Exam General Appearance: WD/WN, alert, no apparent distress Respiratory: normal breath sounds, No crackles, No rhonchi, No wheezing Cardiac/Chest: regular rate, rhythm, No edema, No diastolic murmur, No systolic murmur Skin: normal color, warm/dry Neuro/Psych: alert, normal mood/affect, oriented x 3 ICD10 Worksheet Patient Problems: Problems Problem Status Onset Acute ischemic stroke Acute CVA (cerebral vascular accident) Acute
[2017-12-25] MEDS ORDERED: LEVOTHYROXINE 100 MCG TAB PO SCH (15:15)
[2017-12-26] MEDS ORDERED: LEVOTHYROXINE 88 MCG TAB PO SCH (07:00)
[2017-12-26] MEDS: ROSUVASTATIN CALCIUM 20 MG TAB PO SCH (08:36)
[2017-12-26] MEDS: APIXABAN 5 MG TAB PO SCH ×2 (08:36→21:21)
--- NOTE | 2017-12-26 13:28 | SOAPPROG ---
SOAP Progress Note Assessment/Plan: Assessment: * Cerebrovascular accident with left-sided weakness and deficit to mobility. * Initial functional independence measure 87 on 12/18/2017, improved to 107 as of 12/25/2017. Progressing to independent in her room today. Safer with a front wheeled walker than a 4 wheeled walker. Climbed 9 stairs with 1 rail. Modified independence for ADLs except supervision to standby assist for bath transfer and bathing. * Continue PT and OT to optimize functional status to the independent or modified independent level for discharge home alone. * Cognitive impairment due to the stroke. * Very mild deficits to attention, memory and problem solving/reasoning. 100% accuracy with filling her med box. * Continue speech and language pathology, with the goal of being safe alone at home. * Paroxysmal atrial fibrillation. Continue apixaban. This was discussed with her pharmacy, the [facility] in [place]. She will have a high co-pay for the first dose, but afterwards this medication will be covered by insurance. * Discontinue atenolol as her blood pressure is running low. If she has tachycardia, would favor initiating metoprolol 12.5 mg twice daily for better 24 hr control. * Neurology note reviewed. No indication for aspirin while on apixaban. Will discontinue aspirin. * WILL RESTART ATENOLOL. CONSIDERED METOPROLOL ABOVE BUT SHE HAD BEEN QUITE STABLE ON ATENOLOL PRIOR. HER BLOOD PRESSURE IS BETTER. I AM ALSO GOING TO PUT HER BACK ON ARMOUR THYROID BELOW WHICH SHOULD HELP HER TACHYCARDIA * Hypotension. BMP within normal limits. BETTER BLOOD PRESSURE TODAY * Urinary frequency. Check PVR PRN. * Hypothyroidism * PATIENT HAD BEEN ON ARMOUR THYROID FOR 30 YEARS. SHE REALLY WANTS TO GO BACK ON THIS AND IS WILLING TO PAY [id number] ON DISCHARGE. LAST TSH WAS SUPPRESSED. WILL SWITCH BACK TO ARMOR. I THINK THIS WILL HELP HER TACHYCARDIA AND HOPEFULLY REDUCE INCIDENCE OF PAROXYSMAL ATRIAL FIBRILLATION. * Fatigue. Likely due to deconditioning. Hypothyroidism does not contribute. Continue efforts per PT and OT. * Dyslipidemia. Continue rosuvastatin. * Poor sleep in the hospital. * Improved. No indication for hypnotic. Uses melatonin occasionally. Continue to monitor. * Pulmonary hypertension, mild, and history of bronchiectasis.. She appears to be compensated with no hypoxia. * Benign hepatic cyst. * Tachycardia of unclear etiology. Pulmonary embolus was ruled out and TSH was normal, with recent change from [place] thyroid to levothyroxine. * She is no longer tachycardic. She will be monitored with further investigations as indicated. Plan: 12/26/17 13:25 Subjective: Had another episode of tachycardia with therapy. I examined her several minutes after she rested and her heart rate was fast but regular Objective: Vital Signs Temp Pulse Resp BP Pulse Ox 36.4 C 96 16 126/76 H 93 12/26/17 07:22 12/26/17 10:54 12/26/17 07:22 12/26/17 07:22 12/26/17 07:22 Laboratory Results 12/25/17 13:05 12/25/17 12/26/17 12/27/17 05:59 05:59 05:59 Intake Total 920 1483 660 Output Total 750 Balance 170 1483 660 Physical Exam - Physical Exam General Appearance: WD/WN, alert, no apparent distress Neck: supple Respiratory: lungs clear, normal breath sounds Cardiac/Chest: regular rate, rhythm, tachycardia Abdomen: soft Neuro/Psych: alert, normal mood/affect, oriented x 3 ICD10 Worksheet Patient Problems: Problems Problem Status Onset Acute ischemic stroke Acute CVA (cerebral vascular accident) Acute
[2017-12-26] MEDS: ATENOLOL 25 MG TAB PO SCH (14:58)
[2017-12-27] MEDS: THYROID 60 MG TAB PO SCH (06:37)
[2017-12-27] MEDS: ROSUVASTATIN CALCIUM 20 MG TAB PO SCH (08:19)
[2017-12-27] MEDS: ATENOLOL 25 MG TAB PO SCH (08:20)
[2017-12-27] MEDS: APIXABAN 5 MG TAB PO SCH ×2 (08:23→20:18)
--- NOTE | 2017-12-27 19:56 | SOAPPROG ---
SOAP Progress Note Assessment/Plan: Assessment: * Cerebrovascular accident with left-sided weakness and deficit to mobility. * Initial functional independence measure 87 on 12/18/2017, improved to 107 as of 12/25/2017. Progressing to independent in her room today. Safer with a front wheeled walker than a 4 wheeled walker. Climbed 9 stairs with 1 rail. Modified independence for ADLs except supervision to standby assist for bath transfer and bathing. * Continue PT and OT to optimize functional status to the independent or modified independent level for discharge home alone. * Cognitive impairment due to the stroke. * Very mild deficits to attention, memory and problem solving/reasoning. 100% accuracy with filling her med box. * Continue speech and language pathology, with the goal of being safe alone at home. * Paroxysmal atrial fibrillation. Continue apixaban. This was discussed with her pharmacy, the [facility] in [place]. She will have a high co-pay for the first dose, but afterwards this medication will be covered by insurance. * Neurology note reviewed. No indication for aspirin while on apixaban. Will discontinue aspirin. * WILL RESTART ATENOLOL. CONSIDERED METOPROLOL ABOVE BUT SHE HAD BEEN QUITE STABLE ON ATENOLOL PRIOR. HER BLOOD PRESSURE IS BETTER. I AM ALSO GOING TO PUT HER BACK ON ARMOUR THYROID BELOW WHICH SHOULD HELP HER TACHYCARDIA * Hypotension. BMP within normal limits. BETTER BLOOD PRESSURE TODAY * Urinary frequency. Check PVR PRN. * Hypothyroidism * PATIENT HAD BEEN ON ARMOUR THYROID FOR 30 YEARS. SHE REALLY WANTS TO GO BACK ON THIS AND IS WILLING TO PAY [id number] ON DISCHARGE. LAST TSH WAS SUPPRESSED. WILL SWITCH BACK TO ARMOR. I THINK THIS WILL HELP HER TACHYCARDIA AND HOPEFULLY REDUCE INCIDENCE OF PAROXYSMAL ATRIAL FIBRILLATION. * Fatigue. Likely due to deconditioning. Hypothyroidism does not contribute. Continue efforts per PT and OT. * Dyslipidemia. Continue rosuvastatin. * Poor sleep in the hospital. * Improved. No indication for hypnotic. Uses melatonin occasionally. Continue to monitor. * Pulmonary hypertension, mild, and history of bronchiectasis.. She appears to be compensated with no hypoxia. * Benign hepatic cyst. * Tachycardia of unclear etiology. Pulmonary embolus was ruled out and TSH was normal, with recent change from [place] thyroid to levothyroxine. * She is no longer tachycardic. She will be monitored with further investigations as indicated. Plan: 12/26/17 13:25 12/27/17 19:55 Subjective: Feels better today. No tachycardia Objective: Vital Signs Temp Pulse Resp BP Pulse Ox 36.3 C 84 16 121/73 H 94 12/27/17 18:23 12/27/17 18:23 12/27/17 18:23 12/27/17 18:23 12/27/17 18:23 Laboratory Results 12/25/17 13:05 12/26/17 12/27/17 12/28/17 05:59 05:59 05:59 Intake Total 1483 1420 800 Balance 1483 1420 800 Physical Exam - Physical Exam General Appearance: WD/WN, alert, no apparent distress Respiratory: lungs clear, normal breath sounds Cardiac/Chest: regular rate, rhythm, No edema Neuro/Psych: alert, normal mood/affect, oriented x 3 ICD10 Worksheet Patient Problems: Problems Problem Status Onset Acute ischemic stroke Acute CVA (cerebral vascular accident) Acute
[2017-12-28] MEDS: THYROID 60 MG TAB PO SCH (07:15)
[2017-12-28] MEDS: APIXABAN 5 MG TAB PO SCH ×2 (08:12→21:04)
[2017-12-28] MEDS: ROSUVASTATIN CALCIUM 20 MG TAB PO SCH (08:13)
[2017-12-28] MEDS: ATENOLOL 25 MG TAB PO SCH (08:13)
--- NOTE | 2017-12-28 12:51 | SOAPPROG ---
SOAP Progress Note Assessment/Plan: Assessment: * Cerebrovascular accident with left-sided weakness and deficit to mobility. * Initial functional independence measure 87 on 12/18/2017, improved to 107 as of 12/25/2017. Progressed to independent in her room 12/25/2017. Safer with a front wheeled walker than a 4 wheeled walker. Climbed 9 stairs with 1 rail. Modified independence for ADLs except supervision to standby assist for bath transfer and bathing. * Continue PT and OT to optimize functional status to the independent or modified independent level for discharge home alone. * Cognitive impairment due to the stroke. * Very mild deficits to attention, memory and problem solving/reasoning. 100% accuracy with filling her med box. * Continue speech and language pathology, with the goal of being safe alone at home. * Paroxysmal atrial fibrillation. Continue apixaban. This was discussed with her pharmacy, the [facility] in [place]. She will have a high co-pay for the first dose, but afterwards this medication will be covered by insurance. * Continue atenolol. * Neurology note reviewed. No indication for aspirin while on apixaban. Will discontinue aspirin. * Hypotension. BMP within normal limits. Asymptomatic. * Urinary frequency. Check PVR PRN. * Hypothyroidism. Resumed armor Thyroid 60 mg q.day on 12/27/2017. Recheck TSH in 4-6 weeks. * Fatigue. Likely due to deconditioning. Hypothyroidism does not contribute. Continue efforts per PT and OT. * Dyslipidemia. Continue rosuvastatin. * Poor sleep in the hospital. * Improved. No indication for hypnotic. Uses melatonin occasionally. Continue to monitor. * Pulmonary hypertension, mild, and history of bronchiectasis.. She appears to be compensated with no hypoxia. * Benign hepatic cyst. * Tachycardia of unclear etiology. Pulmonary embolus was ruled out and TSH was normal, with recent change from [place] thyroid to levothyroxine. * She is no longer tachycardic. She will be monitored with further investigations as indicated. DISPOSITION: Goal is independent function and ability to safely negotiate 5 stairs to enter the house. Discharge date set for 12/30/2017. Followup. There are no specific plans for followup indicated in discharge paperwork other than to see her primary care provider and to have a repeat TSH in approximately a month. Primary care provider is in [place]. This patient needs a walker. She has a mobility limitation that significantly impairs 1 or more mobility related ADLs in the home, she is able to use the walker safely, and the functional mobility deficit cannot be resolved with a cane. 12/28/17 12:51 Subjective: Has some fatigue today. Reports that she was more active with physical therapy yesterday. Beginning to have a cough which she typically gets in the afternoon related to history of bronchiectasis. She says she has to lay down cough until she can clear for phlegm. No dyspnea, no fevers or chills. Objective: Vital Signs Temp Pulse Resp BP Pulse Ox 36.3 C 86 16 112/70 94 12/28/17 08:00 12/28/17 08:00 12/28/17 08:00 12/28/17 08:00 12/28/17 08:00 Laboratory Results 12/25/17 13:05 12/27/17 12/28/17 12/29/17 05:59 05:59 05:59 Intake Total 1420 1500 200 Balance 1420 1500 200 Physical Exam - Physical Exam General Appearance: WD/WN, alert, no apparent distress Respiratory: normal breath sounds, No crackles, No rhonchi, No wheezing Cardiac/Chest: regular rate, rhythm, No edema, No diastolic murmur, No systolic murmur Skin: normal color, warm/dry Neuro/Psych: alert, normal mood/affect, oriented x 3, other (Ambulating in the [place]lvarez with Physical therapy using front wheeled walker. Slightly flexed posture , step through pattern, narrow base of support.) ICD10 Worksheet Patient Problems: Problems Problem Status Onset Acute ischemic stroke Acute CVA (cerebral vascular accident) Acute
[2017-12-29] MEDS: THYROID 60 MG TAB PO SCH (07:10)
[2017-12-29] MEDS: APIXABAN 5 MG TAB PO SCH ×2 (08:42→20:30)
[2017-12-29] MEDS: ATENOLOL 25 MG TAB PO SCH (08:42)
[2017-12-29] MEDS: ROSUVASTATIN CALCIUM 20 MG TAB PO SCH (08:43)
--- NOTE | 2017-12-29 12:13 | SOAPPROG ---
SOAP Progress Note Assessment/Plan: Assessment: * Cerebrovascular accident with left-sided weakness and deficit to mobility. * Initial functional independence measure 87 on 12/18/2017, improved to 107 as of 12/25/2017. Progressed to independent in her room 12/25/2017. Safer with a front wheeled walker than a 4 wheeled walker. Climbed 9 stairs with 1 rail. Modified independence for ADLs except supervision to standby assist for bath transfer and bathing. * Continue PT and OT to optimize functional status to the independent or modified independent level for discharge home alone. * Cognitive impairment due to the stroke. * Very mild deficits to attention, memory and problem solving/reasoning. 100% accuracy with filling her med box. * Continue speech and language pathology, with the goal of being safe alone at home. * Paroxysmal atrial fibrillation. Continue apixaban. This was discussed with her pharmacy, the [facility] in [place]. She will have a high co-pay for the first dose, but afterwards this medication will be covered by insurance. * Continue atenolol. * Neurology note reviewed. No indication for aspirin while on apixaban. Will discontinue aspirin. * Hypotension. BMP within normal limits. Asymptomatic. * Urinary frequency. Check PVR PRN. * Hypothyroidism. Resumed armor Thyroid 60 mg q.day on 12/27/2017. Recheck TSH in 4-6 weeks. * Fatigue. Likely due to deconditioning. Hypothyroidism does not contribute. Continue efforts per PT and OT. * Dyslipidemia. Continue rosuvastatin. * Poor sleep in the hospital. * Improved. No indication for hypnotic. Uses melatonin occasionally. Continue to monitor. * Pulmonary hypertension, mild, and history of bronchiectasis.. She appears to be compensated with no hypoxia. * Benign hepatic cyst. * Tachycardia of unclear etiology. Pulmonary embolus was ruled out and TSH was normal, with recent change from [place] thyroid to levothyroxine. * She is no longer tachycardic. She will be monitored with further investigations as indicated. DISPOSITION: Goal is independent function and ability to safely negotiate 5 stairs to enter the house. Discharge date set for 12/30/2017. Followup. There are no specific plans for followup indicated in discharge paperwork other than to see her primary care provider and to have a repeat TSH in approximately a month. Primary care provider is in [place]. This patient needs a walker. She has a mobility limitation that significantly impairs 1 or more mobility related ADLs in the home, she is able to use the walker safely, and the functional mobility deficit cannot be resolved with a cane. 12/29/17 12:12 Subjective: Difficulty getting back to sleep after getting up to urinate during the night, and feels fatigued today. Otherwise no complaints, and ready to discharge home tomorrow. Objective: Vital Signs Temp Pulse Resp BP Pulse Ox 36.9 C 83 17 107/61 94 12/29/17 07:18 12/29/17 08:42 12/29/17 07:18 12/29/17 08:42 12/29/17 07:18 Laboratory Results 12/25/17 13:05 12/28/17 12/29/17 12/30/17 05:59 05:59 05:59 Intake Total 1500 1550 360 Balance 1500 1550 360 Physical Exam - Physical Exam General Appearance: WD/WN, alert, no apparent distress Respiratory: normal breath sounds, No crackles, No rhonchi, No wheezing Cardiac/Chest: regular rate, rhythm, No diastolic murmur, No systolic murmur Skin: normal color, warm/dry Neuro/Psych: alert, normal mood/affect, oriented x 3, other (Ambulates with front wheeled walker, independently, step through pattern, normal base of support.) ICD10 Worksheet Patient Problems: Problems Problem Status Onset Acute ischemic stroke Acute CVA (cerebral vascular accident) Acute
--- NOTE | 2017-12-29 12:26 | PDOREHIP ---
Admission [facility] - Admission - 3 Day Assessment Period Admission Date/Day 1: 12/16/17 Day 2: 12/17/17 Day 3: 12/18/17 Discharge [facility] - Discharge - 3 Day Assessment Period 2 Days Prior to Anticipated Discharge Date: 12/28/17 1 Day Prior to Anticipated Discharge Date: 12/29/17 Anticipated Discharge Date: 12/30/17 - Discharge Skin Conditions Unhealed Pressure Ulcer (1 or more/Stage 1 or >)-Discharge: 0. No
--- NOTE | 2017-12-29 17:54 | GDS ---
[f rep st] DISCHARGE SUMMARY ADMITTING DIAGNOSIS: Cerebrovascular accident of the right internal capsule, with left-sided weakness. DISCHARGE DIAGNOSIS: Cerebrovascular accident of the right internal capsule, with left-sided weakness. OTHER DISCHARGE DIAGNOSES: 1. Cognitive impairment due to stroke. 2. Paroxysmal atrial fibrillation. 3. Hypothyroidism. 4. Fatigue. 5. History of bronchiectasis. COMPLICATIONS: There were none. PROCEDURES: There were none. CONSULTATIONS: There were none. HISTORY/HOSPITAL COURSE: This patient was admitted from [facility] where she had presented on 12/10/2017 with left upper and lower extremity weakness. She was initially seen in the clinic in [place], [place] and was subsequently transferred to [facility]. There, an MRI of the brain showed a right-sided stroke around the internal capsule, consistent with an embolic source. In the hospital, there was an episode of sinus tachycardia and a positive D-dimer, which prompted a chest CT. There was no pulmonary embolus, but a cystic mass was seen on the liver. There was a followup MRI scan , which showed the lesion to be consistent with a benign hepatic cyst. Echocardiogram also was done and showed normal systolic left ventricular function and right ventricular function, no intracardiac shunt, borderline dilated right atrium, trivial to mild tricuspid valve regurgitation, and increased pulmonary artery pressure with a right ventricular systolic pressure of 39 mmHg. She was medically stabilized and ready for rehabilitation. She had considerable debility when first admitted on 12/16/2017. Initial functional independence measure was 87 on 12/18/2017, which is consistent with assisted living level of function. She was progressing well, however, and able to walk 200 feet. There was a bilateral Trendelenburg gait, and Physical Therapy was focusing on activation of the gluteus muscles. She continued to improve, and with a functional independence measure of 107 on 12/25/2017, which is consistent with independent level of function. She advanced to independent in her room on 12/25/2017. She was found to be safe for ambulating with a front-wheeled walker, then with a 4-wheeled walker. She was able to climb 9 stairs with 1 rail. Her discharge goal was to be able to climb and descend the 5 steps into her home at [place], as well as achieve functional independence. She achieved modified independence for activities of daily living, except she required supervision to standby assist for bath transfer and for bathing. Regarding cognitive impairment due to the stroke, this improved. She was noted to have very mild deficits to attention, memory, problem solving, and reasoning. She was able to do a medication management exercise with 100% accuracy. For paroxysmal atrial fibrillation, she was begun on apixaban. This was discussed with her pharmacy in [place]. There will be a high co-pay for the first dose, but subsequently, she will be paying only a minimal co-pay. Social Work was able to obtain a voucher to cover the cost of the first month of the medication. She had hypothyroidism. She had a recent change from [place] Thyroid to levothyroxine, which preceded her stroke, and she was concerned that it had contributed to her stroke. [place] Thyroid at 60 mg per day was resumed on 12/27. She had a TSH while she was still taking levothyroxine and was suppressed at 0.094, so her dose of 100 mcg of levothyroxine was too high. It was reduced to 88 mcg prior to the change to [place] Thyroid. She had considerable fatigue. Certainly, some of it was due to deconditioning. There may have been a component of hyperthyroidism contributing. She was encouraged to continue endurance activities with longer walks with physical therapy. She had intermittent poor sleep. This may have contributed to her fatigue as well. She used melatonin occasionally. It was anticipated that she would have better sleep when she returned home. Bronchiectasis and mild pulmonary hypertension. She typically would have coughing episodes in the afternoon, in which she would be able to clear mucus. Unclear whether this contributed to her fatigue. She was stable otherwise from a cardiopulmonary perspective. DISCHARGE PLAN: Condition upon discharge is good. Activity is ad louie. Diet is regular. She will continue home OT, PT, and [facility], and will also have a registered nurse visit regarding medication management. DISCHARGE MEDICATIONS: 1. Apixaban 5 mg p.o. b.i.d. 2. Atenolol 12.5 mg p.o. daily. 3. Rosuvastatin 10 mg p.o. daily. 4. [place] Thyroid 60 mg p.o. daily. ISSUES TO BE ADDRESSED AT FOLLOWUP: 1. Functional status. She will continue therapies at home and can follow up with her primary care provider. 2. Hypothyroidism. She should have a repeat TSH in 4-6 weeks. 3. Paroxysmal atrial fibrillation. Continue apixaban, as well as atenolol. She had some episodes of low blood pressure that were not symptomatic. She should be monitored for symptoms of hypotension. 4. Fatigue. It is hoped that she will improve with better sleep at home. She can follow up with her primary care provider. Greater than 30 minutes was spent on this discharge, including medication reconciliation, coordination of care, and counseling patient. Copy requested to: Dr. Cole Cordero, [place], [place] /[id number]/MODL MTDD
[2017-12-30] MEDS: THYROID 60 MG TAB PO SCH (06:01)
[2017-12-30 06:43] VITALS: BP 112/61
[2017-12-30] MEDS: APIXABAN 5 MG TAB PO SCH (08:22)
[2017-12-30] MEDS: ATENOLOL 25 MG TAB PO SCH (08:22)
[2017-12-30] MEDS: ROSUVASTATIN CALCIUM 20 MG TAB PO SCH (08:23)
== END 2017-12-30 13:18 | disposition home health service (06) | DRG 57 ==
LOC: BREH 12-16 12:59
PROVIDERS: ADMIT Internal Medicine; ATTEND Internal Medicine
DX: I69.352 Hemiplegia and hemiparesis following cerebral infarction affecting left dominant side (principal); I69.393 Ataxia following cerebral infarction; I69.311 Memory deficit following cerebral infarction; K76.89 Other specified diseases of liver; I48.0 Paroxysmal atrial fibrillation; I27.20 Pulmonary hypertension, unspecified; R00.0 Tachycardia, unspecified; E03.9 Hypothyroidism, unspecified; E78.5 Hyperlipidemia, unspecified; Z79.82 Long term (current) use of aspirin; Z66 Do not resuscitate; Z91.81 History of falling; Z96.641 Presence of right artificial hip joint; J47.9 Bronchiectasis, uncomplicated
CPT/HCPCS: 92507-GN; 92522-GN; 97110-GO; 97110-GP; 97112-GO; 97112-GP; 97116-GP; 97162-GP; 97165-GO; 97530-GO; 97530-GP; 97535-GO; 99366-GN; 99366-GO; 99368-GP; G0515-GO